=== PATIENT | female | born 1950 | race Caucasian/White ===

== ENCOUNTER 2023-11-15 12:10 | Outpatient (CLI) | payer BC, MEDICARE, SELFPAY ==
--- NOTE | ~2023-11-15 | XR_ITS ---
Left Knee Technique: AP, lateral, and sunrise views were obtained. Clinical History: Pain Findings: No fracture or dislocation is seen. There is severe medial compartment degenerative change with medial compartment narrowing. There is mild degenerative change of the lateral patellofemoral co mpartment. Soft tissues are unremarkable. No joint effusion is seen. Impression: Severe medial compartment degenerative change. Mild degenerative change of the lateral and patellofemoral compartment. Reviewed, dictated and finalized at location . Impression: Severe medial compartment degenerative change. Mild degenerative change of the lateral and patellofemoral compartment.
--- NOTE | ~2023-11-15 | XR_ITS ---
Right Knee Technique: AP, lateral, and sunrise views were obtained. Clinical History: Pain Findings: No fracture or dislocation is seen. There is severe degenerative change of the medial priya rtment with medial compartment narrowing. There is mild to moderate patellofemoral compartment degene rative change. There is mild lateral compartment degenerative change. Soft tissues are unremarkable. No joint effusion is seen. Impression: Tricompartmental degenerative change, as detailed above, severe at the medial compartment. Reviewed, dictated and finalized at location M. Impression: Tricompartmental degenerative change, as detailed above, severe at the medial c ompartment.
== END 2023-11-15 12:11 ==
PROVIDERS: PCP Internal Medicine; Visit Provider Orthopaedic Surgery
DX: M17.0 Bilateral primary osteoarthritis of knee (principal)
CPT/HCPCS: 73562

== ENCOUNTER 2023-12-28 14:56 | Outpatient (CLI) | payer BC, MEDICARE, SELFPAY ==
--- NOTE | ~2023-12-28 | CT_ITS ---
EXAMINATION: CT LE RT wo con DATE: 12/28/2023 15:35 INDICATION: Right knee unilateral primary osteoarthritis. TECHNIQUE: Computed tomography (CT) of the right lower limb was performed without intravenous contras t. Automated exposure control and iterative reconstruction technique were employed. The dose-length p roduct was 1911.89 mGy-cm. COMPARISON: Right knee radiographs 11/15/2023 FINDINGS: The right hip demonstrates mild osteoarthritis. There is varus angulation at the right knee . There is severe osteoarthritis of medial compartment and moderate osteoarthritis of lateral and pat ellofemoral compartments. There is a 13 mm loose body in the knee joint posteriorly. There is a small knee joint effusion. There is a small Vargas's cyst. IMPRESSION: 1. Severe right knee osteoarthritis. 2. Small right knee joint effusion with loose body. 3. Mild right hip osteoarthritis. Reviewed, dictated and finalized at location A.
--- NOTE | 2023-12-28 15:38 | ECG_ITS ---
SEE SCANNED COPY FOR CONFIRMED REPORT MTDD
== END 2023-12-28 14:57 | disposition home or self-care (01) ==
PROVIDERS: PCP Internal Medicine; Visit Provider Orthopaedic Surgery
DX: M17.11 Unilateral primary osteoarthritis, right knee (principal); M25.461 Effusion, right knee; M23.41 Loose body in knee, right knee; M16.11 Unilateral primary osteoarthritis, right hip
CPT/HCPCS: 73700; 93005

== ENCOUNTER 2024-02-25 14:01 | Outpatient (CLI) | payer BC, MEDICARE, SELFPAY ==
[2024-02-25 15:35] LABS: Basophils Absolute Auto 0.1 K/mm3 (0.0-0.1); Eosinophils Absolute Auto 0.1 K/mm3 (0-0.3); Eosinophils Percent Auto 2.6 % (0-4.4); Hematocrit 41.1 % (37.0-47.0); Hemoglobin 13.6 g/dL (12.0-15.0); Immature Granulocyte Absolute 0.01 K/mm3 (0.00-0.031); Immature Granulocyte Percent A 0.2 % (0-0.5); Lymphocytes Absolute Auto 1.41 K/mm3 (0.9-3.2); Lymphocytes Percent Auto 27.9 % (18.3-44.2); Mean Corpuscular HGB Conc 33.1 g/dl (32-36); Mean Corpuscular Hemoglobin 32.8 pg (26-34); Mean Platelet Volume 9.8 fl (7.4-10.4); Monocytes Absolute Auto 0.7 K/mm3 (0.1-0.6); Monocytes Percent Auto 14.3 % (2.6-8.5); Neutrophils Absolute Auto 2.7 K/mm3 (1.3-6.7); Platelet Count Result 217 k/mm3 (150-375); Red Blood Count 4.15 M/mm3 (4.2-5.4); Red Cell Distribution Width 11.8 % (11.5-14.5); White Blood Count 5.1 K/mm3 (4.5-10.0)
[2024-02-25 15:48] LABS: Albumin Level 4.1 g/dL (3.5-5.1); Estimated Glomerular Filt Rate > 60; Glucose 92 mg/dL (65-110)
[2024-02-25 15:50] LABS: Urine Cotinine NEGATIVE
[2024-02-25 16:45] LABS: Hemoglobin A1C 5.6 % (<5.7)
[2024-02-25 16:46] LABS: MRSA (PCR) NOT DETECTED (NOT DETECTE)
== END 2024-02-25 14:02 | disposition home or self-care (01) ==
PROVIDERS: PCP Internal Medicine; Visit Provider Orthopaedic Surgery
DX: Z01.818 Encounter for other preprocedural examination (principal); M17.11 Unilateral primary osteoarthritis, right knee
CPT/HCPCS: 80307; 82040; 82565; 82947; 83036; 85025; 87641

== ENCOUNTER 2024-03-23 01:28 | Day surgery (SDC) | payer BC, MEDICARE, SELFPAY ==
[2024-02-25 14:34] VITALS: BMI 26.1
--- NOTE | 2024-02-25 14:54 | PC.NURSE ---
Report to the Outpatient Waiting Room, entrance under the green pavilion located off [facility], at time ___8:00 AM____ on date __03/23/24 . Planned Procedure Time: _10:00 AM . Time changes happen often and if your time is changed the preop area will call you the afternoon before. - You and your visitor will be asked to self-screen and do not enter if you have any COVID symptoms. - A mask is optional within the hospital at this time. Patients may have clear liquids (water, carbonated beverages, clear teas, apple juice) until 3 hours prior to surgery( 7:00 AM) with a maximum of 20 ounces. - No food from midnight until time of surgery - Infants may have breast milk until 4 hours before surgery, infant formula 6 hours prior to surgery. - Children will be allowed to drink immediately following surgery. If applicable, please bring a bottle or sippy cup to assist with drinking. Juice, water, soda, and popsicles are readily available. For infants on formula, please bring formula the day of surgery. Pacifiers are allowed. Take the following medications with a SIP of water the morning of surgery: __NONE DO NOT STOP ANY OF YOUR OTHER PRESCRIPTION MEDICATIONS PRIOR TO SURGERY ?EXCEPT THE FOLLOWING Medications to discontinue per physician __PT STATES___HOLD ALL VITAMINS AND SUPPLEMENTS 7 DAYS PRE OP PER DR ARREGUIN _LAST DOSE 03/15/24 Please no make-up, nail arabic, hairspray, perfume, deodorant, or body powder the day of surgery. No jewelry (including any body piercings) or valuables the day of surgery, leave them at home. Please take a shower or bath the night before, or the morning of, surgery with an antibacterial soap. Wear comfortable, loose fitting clothing. Children are encouraged to wear pajamas. - Jewelry must be removed prior to entering the operating room. Rings and piercings that are not removed may be cut off. - The hospital will not accept responsibility for valuables. - Please leave all valuables, including medications, at home the day of surgery. If you are going home after surgery, a licensed otr truck driver must drive you home. - NO public transportation without another adult if you receive anesthesia. - We recommend that an adult stay with you for 24 hours following discharge. - We also recommend that you do not drive, make important decision, drink alcoholic beverages, or take any drugs that were not prescribed by your health care provider for at least 24 hours after your discharge time. Follow any additional instructions given to you from your surgeon. If you or anyone in your household have experienced Covid symptoms in the past week, please notify your surgeon or the nurse liaison at the phone number below for possible testing. VERBAL AND WRITTEN instructions given to ___PATIENT AND SON and asked if any additional questions and then verbalized understanding. Patient advised to call surgeon office or pre surgery nurse liaison [phone] if any additional questions.
[2024-03-23] VITALS (15 sets, daily range): BP systolic 113–153; BP diastolic 51–86; PULSE 60–83; RESP 12–16; TEMP 36–36.5; O2SAT 10–100
--- NOTE | ~2024-03-23 | XR_ITS ---
EXAMINATION: [id number]_[id number]_CR DATE: 03/23/2024 15:36 INDICATION: Postoperative evaluation following right total knee arthroplasty. TECHNIQUE: Anteroposterior and lateral views of the right knee were obtained. COMPARISON: CT dated 12/2823 FINDINGS: Right total knee arthroplasty with patellar resurfacing appears well seated and in near anatomic alig nment. No fractures identified. Expected postoperative subcutaneous and intra-articular gas. IMPRESSION: 1. Right total knee arthroplasty, negative for postoperative purposes. Reviewed, dictated and finalized at location A.
[2024-03-23] MEDS: TRANEXAMIC ACID 1,000MG/ISO100 1,000 MG/100 ML BAG 200 MG IVPB (11:40)
[2024-03-23] MEDS: LACTATED RINGERS 1,000 ML 30 ML IV CONT ×2 (11:40→15:21)
[2024-03-23] MEDS: ACETAMINOPHEN 500 MG TABLET 1000 MG PO (11:40)
--- NOTE | 2024-03-23 12:10 | WPDHPUPDATE1 ---
History and Physical Update Update Date/Time: 03/23/24 12:10 History and Physical has been reviewed, including an updated exam of the patient. There are NO changes in the patient's condition. Risks, benefits, and alternatives have been discussed and questions answered. Patient agrees to proceed with procedure.
--- NOTE | 2024-03-23 12:24 | WPDANESEPPF ---
Anes - Initial Pre Proc Eval Procedure: Operation Date: 03/23/24 13:00 Proposed Procedures p Right Custom Total Knee Arthroplasty - Ike Vazquez MD Date/Time: 03/23/24 12:24 Surgeon: Ike Vazquez MD Pre Op Diagnosis: primary oa right knee Patient Data Age: 73 Gender: F Height: 1.57 m Weight: 60.2 kg Last Vital Signs Temp 97.7 F 03/23/24 11:40 Pulse 78 03/23/24 11:40 Resp 14 03/23/24 11:40 BP 144/70 H 03/23/24 11:40 Pulse Ox 100 03/23/24 11:40 O2 Del Method Room Air 03/23/24 11:40 Allergies Allergy/AdvReac Type Severity Reaction Status Date / Time No Known Drug Allergies Allergy Unknown unknown Verified 03/23/24 11:53 Home Medications Medication Instructions Recorded Confirmed Type tramadol 50 mg tablet 50 mg PO Q6H PRN pain #60 tabs 02/21/24 02/28/24 Rx cholecalciferol (vitamin D3) 1,250 1,250 mcg PO WEEKLY 02/25/24 02/25/24 History mcg (50,000 unit) capsule cholecalciferol (vitamin D3) 50 50 mcg PO DAILY 02/25/24 02/28/24 History mcg (2,000 unit) capsule diphenhydramine HCl 25 mg capsule 25 mg PO QHS PRN Insomnia 02/25/24 02/28/24 History (Allergy (diphenhydramine)) ibandronate 150 mg tablet 50 mg PO MONTHLY 02/25/24 02/25/24 History oxygen-air delivery systems 02/25/24 02/28/24 History Laboratory Tests 03/23/24 11:37 Blood Type Pending Antibody Screen Pending Patient hx anesthesia problems: none Family hx anesthesia problems: none Results Review: All pre-operative results and documents have been reviewed as part of the pre-operative evaluation. [facility] Past Medical History Medical History Heel spur (~1995) Removal of Surgical History Surgical History History of meniscectomy of left knee (~08/21/11) Family History Family History Other Cerebrovascular accident Family history of cardiovascular disease Hypertension Social History Social History Smoking status: Never smoker Additional smoking assessment comments: DENIES ANY FORM OF TOBACCO USE Alcohol intake: current Living arrangements: alone Spiritual care concerns: No Anes - Eval Final PreProcedure Day of Procedure 03/23/24 12:24 Patient weight: normal Heart: regular rate and rhythm Lungs: clear to auscultation Airway: Mallampati scale and special considerations (Edentulous. ) Neurological: alert and oriented Last oral intake: >/= 8 hours ASA classification: I Emergent: no Anesthetic plan: proceed Anesthesia type and monitoring: general ETT and standard monitoring Results Review: All pre-operative results and documents have been reviewed as part of the pre-operative evaluation. EKG w NSR. Pt can walk 1-2 fos, no cp or sob, limited by knee pain. Informed Consent: The patient's anesthetic plan and its attendant risks and benefits were discussed with the patient/family/POA. Questions were solicited and answers provided to the satisfaction of the patient/family/POA.
[2024-03-23] MEDS: ceFAZolin 2 GM/D5W 50 ML 2 GM/50 ML BAG IVPB ×2 (12:59→20:49)
[2024-03-23] MEDS: SODIUM CHLORIDE 0.9% IV 37.7 ML, MORPHINE SULFATE INJ (*CRX) 2 MG, ROPivacaine HCL 1% 2... INFILTRATE (13:40)
[2024-03-23] MEDS: fentaNYL CITRATE INJ (*CRX) 100 MCG/2 ML VIAL 25 MCG IV PUSH ×6 (16:06→16:40)
--- NOTE | 2024-03-23 16:25 | W.PM.PROC2 ---
Procedure Note - Detailed Date of Procedure 03/23/24 Pre-op Diagnosis Primary oa right knee Post-op Diagnosis Same Procedure Performed Total knee arthroplasty, right. Surgeon Ike Vazquez MD Metal Window Screen Assembler Sri De Anda PA-C Anesthesia General and Regional (Subsartorial block.) Findings Custom TKA. Optimal implant fit. Good bone quality. Minimal medial release. PCL intact. Description of Procedure Preoperative antibiotics were given. The limb was prepped and draped in the usual sterile fashion with a well-padded tourniquet high on the thigh. The limb was exsanguinated and the tourniquet inflated to 300 mmHg. A longitudinal incision was created just medial to the patella. A trivector approach to the knee was performed. Arthrotomy was taken down through the joint capsule. No significant releases were initially taken. The femur was exposed and the F1 jig was applied. The coring tool was used to remove the cartilage for the F2 jig to sit flush with the bone. The jig was pinned and the distal cut carefully taken. Caliper measurements confirmed appropriate bony resections according to the preoperative templated plan. The F4 cutting jig for the femur was applied, at the standard rotation. The AP and anterior chamfer cuts were taken. The F5 jig was applied and the posterior chamfer cuts were taken. The tibia was prepared using the T1 jig, after removing cartilage for the jig contact points. Proper alignment was checked with the alignment gisele. The tibia was cut using the T1u guide. Gap balancing was performed. Gap measurements were taken and the knee was trialed. Excellent alignment and soft tissue balancing was confirmed. The posterior cruciate ligament was recessed along the proximal tibia. The patella was cut for resurfacing. Three lug holes were drilled. Meniscal remnants were removed. The trial components were assembled. Excellent range of motion and proper soft tissue balancing were confirmed throughout the full range of motion. Patellar tracking was excellent. The knee was copiously irrigated periodically throughout the procedure. The real implants were cemented into position. Excess cement was carefully removed. The wound was closed in layers with interrupted #1 Vicryl suture, 2-0 strata fix suture, 0 strata fix suture, 2-0 strata fix suture. Steri-Strips placed on the skin with the knee flexed. Sterile bulky dressing applied. The patient was brought to the recovery room in stable condition. There were no complications. Physician assistant teaching professor, Sri De Anda PA-C, required for surgery; including patient positioning, draping, tissue retraction, maintaining instrument position, cement removal, wound closure, and dressing placement. Implants Conformis Custom total knee arthroplasty. Cemented. Cruciate retaining. 6C insert. 38 mm oval patella. Estimated Blood Loss 50 Drains No Complications No immediate complications Condition Stable Disposition PACU [facility] Billing Surgery - Charge Forward: Surgery Billing
[2024-03-23] MEDS: SODIUM CHLORIDE 0.9% IV 1,000 ML 125 ML IV CONT (17:39)
[2024-03-23] MEDS: MELOXICAM 7.5 MG TABLET PO (17:40)
[2024-03-23] MEDS: ACETAMINOPHEN 325 MG TABLET 650 MG PO ×2 (17:40→23:40)
[2024-03-23] MEDS: predniSONE 5 MG TABLET PO (17:40)
[2024-03-23] MEDS: SENNA/DOCUSATE SODIUM TABLET 2 TAB PO (17:40)
--- NOTE | 2024-03-23 17:49 | ADMGEN ---
This patient, Mariana Aragon, was admitted to 3 [facility] Surg Room 312-01. Patient/family oriented to hospital policies and general routines including ID bracelet, bed and alarms, visiting hours, pain management, procedures, bathroom and other care routines, personal items, smoking policy, room service/diet, and visiting hours. Information on how to activate the Rapid Response Team has been discussed. Patient/Family are encouraged to report perceived risks to care and to ask questions if they do not understand what they are told or what they should do. Report from Meena in PACU.
[2024-03-23] MEDS: ASPIRIN 81 MG ENTERIC TABLET PO (20:48)
[2024-03-23] MEDS: traMADol HCL (*CRX) 50 MG TABLET PO (22:25)
[2024-03-24 02:51] VITALS: BP 119/57; PULSE 69; RESP 114; TEMP 35.9; O2SAT 98
[2024-03-24] MEDS: ACETAMINOPHEN 325 MG TABLET 650 MG PO ×2 (05:43→10:59)
[2024-03-24] MEDS: ceFAZolin 2 GM/D5W 50 ML 2 GM/50 ML BAG IVPB ×2 (05:44→12:01)
[2024-03-24 06:38] VITALS: BP 117/57; PULSE 60; RESP 16; TEMP 35.8; O2SAT 98
[2024-03-24 07:13] LABS: Basophils Percent Auto 0.1 % (0.2-1.2); Hematocrit 37.6 % (37.0-47.0); Hemoglobin 12.2 g/dL (12.0-15.0); Immature Granulocyte Absolute 0.07 K/mm3 (0.00-0.031); Immature Granulocyte Percent A 0.7 % (0-0.5); Lymphocytes Absolute Auto 0.63 K/mm3 (0.9-3.2); Mean Corpuscular HGB Conc 32.4 g/dl (32-36); Mean Corpuscular Hemoglobin 32.3 pg (26-34); Mean Corpuscular Volume 99.5 fl (80-100); Mean Platelet Volume 10.4 fl (7.4-10.4); Monocytes Absolute Auto 0.7 K/mm3 (0.1-0.6); Monocytes Percent Auto 6.8 % (2.6-8.5); Neutrophils Absolute Auto 9.1 K/mm3 (1.3-6.7); Neutrophils Percent Auto 86.4 % (45.5-73.1); Platelet Count Result 186 k/mm3 (150-375); Red Blood Count 3.78 M/mm3 (4.2-5.4); Red Cell Distribution Width 11.8 % (11.5-14.5); White Blood Count 10.5 K/mm3 (4.5-10.0)
[2024-03-24 07:22] LABS: Anion Gap 7 mmol/L (4-12); Blood Urea Nitrogen 15 mg/dL (7-17); Calcium 8.3 mg/dL (8.4-10.2); Carbon Dioxide 26 mmol/L (22-30); Chloride 102 mmol/L (98-107); Estimated CRCL calculation 48 ml/min; Estimated Glomerular Filt Rate > 60; Glucose 110 mg/dL (65-110); Potassium 3.8 mmol/L (3.4-5.0); Sodium 135 mmol/L (137-145)
--- NOTE | 2024-03-24 07:56 | WPDANESPN ---
Anes - Prog Note Post-Op Date/Time: 03/24/24 07:56 Vital Signs: Last Vital Signs Temp 35.8 C L 03/24/24 06:38 Pulse 60 03/24/24 06:38 Resp 16 03/24/24 06:38 BP 117/57 L 03/24/24 06:38 Pulse Ox 98 03/24/24 06:38 O2 Del Method Room Air 03/23/24 20:00 O2 Flow Rate 8 03/23/24 15:50 Pain Score (VAS): 0 I/O: Intake & Output 03/23/24 03/23/24 03/24/24 15:59 23:59 07:59 Intake Total 50 200 50 Output Total 1 Balance 50 200 49 Laboratory Tests 03/24/24 06:47 03/24/24 06:47 03/23/24 03/24/24 11:37 06:47 WBC 10.5 H RBC 3.78 L Hgb 12.2 Hct 37.6 MCV 99.5 MCH 32.3 MCHC 32.4 RDW 11.8 Plt Count 186 MPV 10.4 Immature Gran % (Auto) 0.7 H Neut % (Auto) 86.4 H Lymph % (Auto) 6.0 L [place] % (Auto) 6.8 Eos % (Auto) 0.0 Baso % (Auto) 0.1 L Lymph # (Auto) 0.63 L [place] # (Auto) 0.7 H Eos # (Auto) 0.0 Baso # (Auto) 0.0 Abs Immat Gran (auto) 0.07 H Absolute Neuts (auto) 9.1 H Absolute Nucleated RBC 0.000 Nucleated RBC % 0.0 Sodium 135 L Potassium 3.8 Chloride 102 Carbon Dioxide 26 Anion Gap 7 BUN 15 Creatinine 0.70 Estim Creat Clear Calc 48 Estimated GFR > 60 Glucose 110 Calcium 8.3 L Blood Type B Positive Antibody Screen Positive Antibody Identification Pending Antigen Identification Pending PATTY, IgG Interpret 3+ PATTY, Poly Interpret Pending PATTY, Complement Interp Pending Patient Feedback: Patient satisfied with anesthetic care.
[2024-03-24] MEDS: traMADol HCL (*CRX) 50 MG TABLET PO (08:38)
[2024-03-24] MEDS: polyethylene glycoL 3350 17 GM POWD.PACK PO (08:42)
[2024-03-24] MEDS: SENNA/DOCUSATE SODIUM TABLET 2 TAB PO (08:42)
[2024-03-24] MEDS: ASPIRIN 81 MG ENTERIC TABLET PO (08:42)
[2024-03-24] MEDS: MELOXICAM 7.5 MG TABLET PO (08:42)
[2024-03-24 10:00] VITALS: BP 123/62; PULSE 61; RESP 18; TEMP 36.8; O2SAT 100
--- NOTE | 2024-03-24 10:09 | PM.DS ---
DS: Admitting Diagnosis Discharge Date 03/24/24 Admitting Diagnosis Knee arthritis. DS: Discharge Diagnosis Discharge Diagnosis (1) Status post total right knee replacement: Code(s): Z96.651 - Presence of right artificial knee joint Status: Acute Assessment and Plan: Postop day 1: Right total knee arthroplasty. Patient tolerated procedure well. No complications. Pain manageable with pain medication. No numbness or tingling. We had a lengthy discussion regarding postoperative wound care, limitations, expectations, and exercises. Patient shows good understanding. She has had initial physical therapy and is tolerating it well. DVT prophylaxis: 81 mg baby aspirin b.i.d. for 14 days. Pain medication: Percocet. Meloxicam. Prednisone. Patient has followup appointment with Dr. Vazquez in 3 weeks. DS: Summary Hospital Course Reason for hospitalization: Total knee arthroplasty Hospital Course: Patient tolerated procedure well. Has had initial PT/OT. No complications. Pain well managed. Status at Discharge Functional status at discharge: uses cane/walker Overall status at discharge: patient is progressing back to baseline Time Spent with Patient Time attestation: Total time spent providing and/or coordinating discharge services: Exam Narrative: Normal weight 73 y/o female. Resting comfortably in chair. No acute distress. A&O x3. Wearing compression socks bilaterally. Dressing intact with no drainage. Moderate swelling. No ecchymosis. No erythema. No hematoma. Good early range of motion 10-80. Calf nontender. Quad pain. Quad fires. Neurologic status intact. No varicosities. Distal pulses palpable. DS: Data Data Completed and Pending Labs on day of discharge: Labs from last 24 hours 03/24/24 03/23/24 06:47 11:37 WBC 10.5 H RBC 3.78 L Hgb 12.2 Hct 37.6 MCV 99.5 MCH 32.3 MCHC 32.4 RDW 11.8 Plt Count 186 MPV 10.4 Immature Gran % (Auto) 0.7 H Neut % (Auto) 86.4 H Lymph % (Auto) 6.0 L [place] % (Auto) 6.8 Eos % (Auto) 0.0 Baso % (Auto) 0.1 L Lymph # (Auto) 0.63 L [place] # (Auto) 0.7 H Eos # (Auto) 0.0 Baso # (Auto) 0.0 Abs Immat Gran (auto) 0.07 H Absolute Neuts (auto) 9.1 H Absolute Nucleated RBC 0.000 Nucleated RBC % 0.0 Sodium 135 L Potassium 3.8 Chloride 102 Carbon Dioxide 26 Anion Gap 7 BUN 15 Creatinine 0.70 Estim Creat Clear Calc 48 Estimated GFR > 60 Glucose 110 Calcium 8.3 L Blood Type B Positive Antibody Screen Positive Antibody Identification Pending Antigen Identification Pending PATTY, IgG Interpret 3+ PATTY, Poly Interpret Pending PATTY, Complement Interp Pending Discharge Plan Discharge Patient Disposition: Home, Self-Care Discharge Instructions: See green instruction sheets Patient Instructions: Pain Management in Older Adults (DC), Total Knee Replacement (DC) Stand Alone Forms: General Discharge Instructions Follow-up/Referrals: Sri De Anda PA [Physician Relations Manager] - Discharge Medications: New aspirin 81 mg tablet,delayed release (DR/EC) 81 mg PO BID 14 Days Qty: 28 0RF meloxicam 15 mg tablet 15 mg PO DAILY Qty: 30 0RF Rx Instructions: Cut in half. Take 1/2 in morning and 1/2 at night. Take with food. Stop if stomach upset. prednisone 5 mg tablet 5 mg PO DAILY 21 Days Qty: 21 0RF oxycodone-acetaminophen 5-325 mg tablet 1 - 2 tablet PO Q4-6H MDD 6 PRN (Reason: pain) Qty: 30 0RF Continued cholecalciferol (vitamin D3) 50 mcg (2,000 unit) capsule 50 mcg PO DAILY (DME) oxygen-air delivery systems Device See Rx Instructions .Route Rx Instructions: As directed diphenhydramine HCl [Allergy (diphenhydramine)] 25 mg capsule 25 mg PO QHS PRN (Reason: Insomnia) cholecalciferol (vitamin D3) 1,250 mcg (50,000 unit) capsule 1,250 mcg PO WEEKLY Patient Comments: TAKES ON
[2024-03-24] MEDS: oxyCODONE/ACETAMINOPHEN (*CRX) 5-325 MG TABLET 1 TABLET PO (12:26)
== END 2024-03-24 14:23 | disposition home or self-care (01) ==
LOC: ANHSURGERY 15:22 → ANH3MEDSUR 17:09
PROVIDERS: Physician Assistant Surgical; PCP Internal Medicine; Visit Provider Orthopaedic Surgery
PROC: (CPT 27447; principal; 2024-03-23 13:00)
DX: M17.11 Unilateral primary osteoarthritis, right knee (principal)
CPT/HCPCS: 27447; 36415; 73560; 80048; 80307; 82040; 82565; 82947; 83036; 85025; 86850; 86860; 86870; 86880; 86900; 86901; 86902; 86971; 87641; 97110; 97161; 97165; A9270; C1713; C1776; J0171; J0690; J1100; J1170; J1885; J2250; J2270; J2405; J2704; J2795; J3010; J7030; J7120; J7512

== ENCOUNTER 2024-04-21 10:13 | Emergency (ER) | payer BC, MEDICARE, SELFPAY ==
--- NOTE | ~2024-04-21 | CT_ITS ---
EXAMINATION: CT abdomen pelvis w con DATE: 04/21/2024 14:13 INDICATION: Abdominal pain TECHNIQUE: Computed tomography (CT) of the abdomen and pelvis was performed with 100 mL Omnipaque-350 intravenous contrast. Automated exposure control and iterative reconstruction technique were employe d. The dose-length product was 336.94 mGy-cm. COMPARISON: None FINDINGS: Lung bases are clear. Heart size is normal. Aortic valve calcific lesion. No pericardial or pleural e ffusion. Liver, gallbladder, spleen, pancreas, bilateral adrenal glands and kidneys are normal. No polly wel obstruction. The appendix is not visualized. No pericecal inflammatory change to suggest acute ap pendicitis. Bladder, uterus and bilateral adnexa are unremarkable. No free intraperitoneal gas or flu id. No pathologically enlarged abdominal or pelvic lymphadenopathy. Moderate lower thoracic and mild lumbar spondylosis. IMPRESSION: 1. No acute intra-abdominal/pelvic process. Reviewed, dictated and finalized at location B.
--- NOTE | ~2024-04-21 | XR_ITS ---
EXAMINATION: XR abdomen/kub 1V DATE: 04/21/2024 12:13 INDICATION: Constipation. TECHNIQUE: A supine view of the abdomen on 2 radiographs was obtained. COMPARISON: None. FINDINGS: There are no dilated loops of bowel. There is a moderate volume of stool in the colon. IMPRESSION: 1. Normal bowel gas pattern. Reviewed, dictated and finalized at location A.
[2024-04-21 10:13] VITALS: BP 126/86; PULSE 91; RESP 14; TEMP 36.5; O2SAT 100
--- NOTE | 2024-04-21 12:03 | ED.GENADULT ---
HPI - General Adult General Chief complaint: Unspecified Stated complaint: constipation Time Seen by Provider: 04/21/24 11:40 Source: patient Mode of arrival: ambulatory Limitations: no limitations History of Present Illness HPI narrative: This is a 73-year-old female that presents to the emergency department for constipation. Reports she does not remember the last time she had a bowel movement. Reports she has tried Dulcolax, Senokot, and MiraLax with little relief. She was taking tramadol for any pain after her knee replacement, she stop taking this yesterday to see if it would help. Denies fevers or vomiting. Related Data Home Medications Medication Instructions Recorded Confirmed cholecalciferol (vitamin D3) 1,250 1,250 mcg PO WEEKLY 02/25/24 04/14/24 mcg (50,000 unit) capsule cholecalciferol (vitamin D3) 50 50 mcg PO DAILY 02/25/24 04/14/24 mcg (2,000 unit) capsule diphenhydramine HCl 25 mg capsule 25 mg PO QHS PRN Insomnia 02/25/24 04/14/24 (Allergy (diphenhydramine)) ibandronate 150 mg tablet 50 mg PO MONTHLY 02/25/24 04/14/24 oxygen-air delivery systems 02/25/24 04/14/24 Allergies Allergy/AdvReac Type Severity Reaction Status Date / Time No Known Drug Allergies Allergy Unknown unknown Verified 04/14/24 11:12 Review of Systems Review of Systems: CONSTITUTIONAL: Denies fever GASTROINTESTINAL: Reports abdominal pain. Denies nausea, vomiting, or diarrhea. GENITOURINARY: Denies dysuria All systems reviewed & are unremarkable except as noted in HPI and below [facility] Past Medical History Medical History (Updated 04/21/24 @ 17:31 by Michelle Silva PA-C) Heel spur (~1995) Removal of Surgical History Surgical History (Updated 04/21/24 @ 12:06 by Michelle Silva PA-C) History of meniscectomy of left knee (~08/21/11) Status post total right knee replacement Family History Family History Other Cerebrovascular accident Family history of cardiovascular disease Hypertension Social History Social History Smoking status: Never smoker Additional smoking assessment comments: DENIES ANY FORM OF TOBACCO USE Alcohol intake: never Substance use: never Do You Feel Safe in your Home?: Yes Lack of Transportation: No Lack of Food: Never True Current Housing: I Have Housing Concerned About Future Housing: No Difficulty Paying Gas/Electric Bills: No Difficulty Paying for Meds: No Currently Unemployed: No Education: Don't Know Difficulty w/ Childcare or Family Care: No Living arrangements: alone Spiritual care concerns: No Exam Narrative: GENERAL: Well-appearing, well-nourished, and in no acute distress. HEAD: Normocephalic, atraumatic. EYES: EOMI. CHEST: Clear to auscultation. No respiratory distress. No wheezes rales or rhonchi HEART: Regular rate and rhythm. No murmur heard. Normal peripheral pulses. ABDOMEN: Soft, nondistended, normal active bowel sounds. Tender to palpation throughout the abdomen, without guarding EXTREMITIES: Normal range of motion. No edema. SKIN: Warm, dry, no rash. NEURO: No focal deficits. Alert and oriented x3. PSYCH: Normal mood and affect Course Course Emergency Course: Patient had large bowel movement after enema. Feeling much better Vital Signs Vital signs: Vital Signs Temperature 97.7 F 04/21/24 10:13 Pulse Rate 91 04/21/24 10:13 Respiratory Rate 14 04/21/24 10:13 Blood Pressure 126/86 04/21/24 10:13 Pulse Oximetry 100 04/21/24 10:13 Oxygen Delivery Room Air 04/21/24 10:13 Temperature 97.7 F 04/21/24 10:13 Pulse Rate 91 04/21/24 10:13 Respiratory Rate 14 04/21/24 10:13 Blood Pressure 126/86 04/21/24 10:13 Pulse Oximetry 100 04/21/24 10:13 Oxygen Delivery Room Air 04/21/24 10:13 Medical Decision Making MDM Narrative Medical decision making narr
[2024-04-21 12:41] LABS: Add Urine Microscopic? YES; Appearance Urine Clear (Clear); Bilirubin Urine Negative (Negative); Blood Urine Negative (Negative); Color Urine Dark Yellow (Yellow); Glucose Urine UA Negative (Negative); Ketones Urine 2+ mg/dL (Negative); Leukocyte Esterase Ur Negative LEU/UL (Negative); Nitrate Urine Negative (Negative); Protein Urine Negative (Negative); Specific Grav Ur 1.024 (1.001-1.035); pH Urine 5.5 (5.0-9.0)
[2024-04-21 12:56] LABS: Alanine Aminotransferase 30 U/L (6-35); Alkaline Phosphatase 87 U/L (38-126); Anion Gap 8 mmol/L (4-12); Aspartate Amino Transferase 31 U/L (14-36); Bilirubin,Total 0.5 mg/dL (0.2-1.3); Blood Urea Nitrogen 14 mg/dL (7-17); Carbon Dioxide 24 mmol/L (22-30); Chloride 103 mmol/L (98-107); Estimated CRCL calculation 55 ml/min; Estimated Glomerular Filt Rate > 60; Glucose 99 mg/dL (65-110); Lipase 42 U/L (23-300); Potassium 3.9 mmol/L (3.4-5.0); Sodium 135 mmol/L (137-145)
[2024-04-21 13:26] LABS: Basophils Percent Auto 0.4 % (0.2-1.2); Hematocrit 39.9 % (37.0-47.0); Hemoglobin 13.2 g/dL (12.0-15.0); Immature Granulocyte Absolute 0.02 K/mm3 (0.00-0.031); Immature Granulocyte Percent A 0.3 % (0-0.5); Lymphocytes Absolute Auto 0.95 K/mm3 (0.9-3.2); Lymphocytes Percent Auto 13.5 % (18.3-44.2); Mean Corpuscular HGB Conc 33.1 g/dl (32-36); Mean Corpuscular Hemoglobin 33.2 pg (26-34); Mean Corpuscular Volume 100.3 fl (80-100); Mean Platelet Volume 10.2 fl (7.4-10.4); Monocytes Absolute Auto 0.5 K/mm3 (0.1-0.6); Monocytes Percent Auto 6.5 % (2.6-8.5); Neutrophils Absolute Auto 5.6 K/mm3 (1.3-6.7); Neutrophils Percent Auto 79.3 % (45.5-73.1); Platelet Count Result 209 k/mm3 (150-375); Red Blood Count 3.98 M/mm3 (4.2-5.4); Red Cell Distribution Width 12.4 % (11.5-14.5); White Blood Count 7.1 K/mm3 (4.5-10.0)
[2024-04-21 17:46] VITALS: BP 129/76; PULSE 89; RESP 16; O2SAT 98
== END 2024-04-21 17:52 | disposition home or self-care (01) ==
PROVIDERS: Emergency Provider Physician Assistant; PCP Internal Medicine
DX: K59.00 Constipation, unspecified (principal)
CPT/HCPCS: 36415; 74018; 74177; 80053; 81001; 83690; 85025; 99284; Q9967

== ENCOUNTER 2024-05-12 09:41 | Outpatient (CLI) | payer BC, MEDICARE, SELFPAY ==
--- NOTE | ~2024-05-12 | XR_ITS ---
EXAMINATION: XR knee RT 3V DATE: 05/12/2024 09:57 INDICATION: Right knee joint replacement. TECHNIQUE: 3 views of right knee including standing views were obtained. COMPARISON: Right knee radiographs 03/23/2024 FINDINGS: There is a total right knee arthroplasty with patellar resurfacing in near-anatomic alignme nt. No fracture. No periprosthetic lucency to suggest loosening or infection. There is a small knee j oint effusion. IMPRESSION: 1. Total right knee arthroplasty in near-anatomic alignment. 2. Small right knee joint effusion. Reviewed, dictated and finalized at location A.
== END 2024-05-12 09:42 | disposition home or self-care (01) ==
LOC: ANHIMG 09:43
PROVIDERS: PCP Internal Medicine; Visit Provider Orthopaedic Surgery
DX: M17.11 Unilateral primary osteoarthritis, right knee (principal); M25.461 Effusion, right knee; Z96.651 Presence of right artificial knee joint
CPT/HCPCS: 73562

== ENCOUNTER 2024-09-11 15:09 | Outpatient (CLI) | payer BC, MEDICARE, SELFPAY ==
--- NOTE | ~2024-09-11 | XR_ITS ---
Right Knee Technique: AP, lateral, and sunrise views were obtained. Clinical History: Artificial knee joint COMPARISON: 05/12/2024 Findings: No fracture or dislocation is seen. Right knee arthroplasty is unchanged. Soft tissues are unremarkable. Probable small joint effusion is seen. Impression: Stable right knee arthroplasty. No acute abnormality. Probable small joint effusion. Reviewed, dictated and finalized at location . [facility] LOCATION Impression: Stable right knee arthroplasty. No acute abnormality. Probable small joint effusion.
--- OUTSIDE RECORDS SUMMARY | 2024-09-11 15:19 | XMS_ITS | Encounter Summary ---
Author Organization [facility] Address [address] [place] [address] Phone Care Team Providers Care Glaze Supervisor Name Role Phone Tess Erwin APRN, CNP Primary Care P ramses Reason for Visit * Reason Comments Medication Refill Encounter Details Date Type Department Care Team (Late st Contact Info) Description 07/04/2020 Refill [facility] - Primary Care - Steven [address] [place] [id number] Tess Erwin APRN, CNP [address] [place] [address] Medication Refill Social History Tobacco Use Types Packs/Day Years Used Date Smoking Tobacco: Never Smokeless Tobacco: Never Alcohol Use Standard Drinks/Week Comments Yes 1 (1 standard drink = 0.6 oz pur e alcohol) Comments No Sex and Gender Information Value Date Recorded Sex Assigned at Female 03/13/2024 9:19 AM CDT Legal Sex Female 9:46 PM CDT Gender Identity Female 03/13/2024 9:19 AM CDT Sexual Orientation Not on file documented as of this encounter Miscellaneous Notes * Telephone Encounter - Kim Gaitan, IMPROVEMENT ANALYST - 07/04/2020 9:37 AM CST Medication failed the protocol, provider to review and approve the medication order if appropriate. Requested Prescriptions Pending Prescriptions Disp Refills traMADol (ULTRAM) 50 MG Tablet [Pharmacy Med Name: TRAMADOL HCL 50 MG TABLET] 12 Tab 0 Sig: Take 1 Tab by mouth every 8 hours as needed for Severe pain. Not Delegated - Analgesics: Opioid Agonists Failed - 07/04/2020 9:26 AM Failed - This refill cannot be delegated Passed - Valid encounter within last 6 months Past Office Visits Recent Outpatient Visits 3 months ago Adjustment disorder with anxiety [facility] Tess Erwin APN, CNP 5 months ago Adjustment disorder with anxiety [facility] Tess Erwin APN PUBLIC HEALTH AIDE 5 months ago Viral illness [facility] Tess Erwin APN, CNP 7 months ago Adjustment disorder with anxiety [facility] Janee Cheung Adelina, СЕРГЕЙ 8 months ago Adjustment disorder with anxiety [facility] Janee Cheung Adelina, [facility] Upcoming Appointments Future Appointments In 2 months [facility] In 2 months Tess Erwin APN, CNP [facility] ILLUMINATOR - Recent and Past Visits Recent Visits Date Type Provider Dept 03/08/20 Office Visit Tess Erwin APN, CNP [facility] 01/23/20 Office Visit Tess Erwin APN, CNP [facility] 01/12/20 Telemedicine Tess Erwin APN, CNP [facility] 11/30/19 Telemedicine Janee Cheung Adelina, СЕРГЕЙ [facility] Showing recent visits within past 460 days with a meds authorizing provider and meeting all other requirements Future Appointments Date Type Provider Dept 09/13/20 Appointment Tess Erwin APN, CNP [facility] Showing future appointments within next 90 days with a meds authorizing provider and meeting all other requirements ORIOGRAPHER documented in this encounter Plan of Treatment Upcoming Encounters Date Type Department Care Team (Late st Contact Info) Description 03/02/2025 8:00 AM CDT [facility] Primary Care - Steven [address] [place] [phone] Tess Erwin APRN, LYNN [address] [place] [address] documented as of this encounter Visit Diagnoses Diagnosis Arthritis Arthropathy, unspecified, site unspecified documented in this encounter Additional Health Concerns Assessment Noted Time PHQ-9 Depression Total Score: 0 12/08/19 17 9:00 AM CDT documented as of this encounter Care Teams Glaze Supervisor Relationship Specialty Start Date End Date Tess Erwin APRN, LYNN [address] [place] [address] PCP - General Advanced Practice Nurse 01/23/20 documented as of this encounter
--- OUTSIDE RECORDS SUMMARY | 2024-09-11 15:19 | XMS_ITS | Clinical Summary ---
Author Organization [facility] Address [address] [place] [address] Phone Care Team Providers Care Dry House Attendant Name Role Phone Tess Erwin APRN, CNP Primary Care P annmarieder Allergies No known active allergies Medications ibandronate (BONIVA) 150 MG TabletIndications :Other osteoporosis without current pathological fracture TAKE 1 TABLET BY MOUTH EVERY 30 DAYS. 3 Tablet 3 05/29/2024 Active Active Problems Problem Noted Date Diagnosed Date Bilateral carpal tunnel syndrome 08/24/2022 Pronator syndrome, right 08/24/2022 Cubital tunnel syndrome, right 08/24/2022 Osteoarthritis of left knee 12/09/2021 Adjustment disorder with anxiety 10/26/2019 Vitamin D deficiency 09/28/2019 B12 deficiency 06/03/2018 Arthritis Eczema Obesity Migraine Resolved Problems Problem Noted Date Diagnosed Date Resolved Date Seasonal affective disorder 09/27/2020 01/05/2022 Rhinitis, non-allergic 07/23/201607/23 Encounters Date Type Department Care Team Description 09/01/2024 11:20 AM ARCHIVIST ECONOMIC HISTORY Lab [facility] - [place] [phone] Steven Garnica B12 deficiency; Encounter for lipid screening for cardiovascular disease; Vitamin D deficiency Discharge Disposition: Discharged to home or Selfcare 09/01/2024 8:30 AM ARCHIVIST ECONOMIC HISTORY Office Visit [facility] [place] [facility] [place] [phone] Tess Erwin APRN, CNP Other osteoporosis without current pathological fracture (Primary Dx); B12 deficiency; Vitamin D deficiency; Encounter for immunization Discharge Disposition: Discharged to home or Selfcare 09/01/2024 Results Follow-Up [facility] - Primary Care - [place] [address] [place] [phone] Tess Erwin APRN, CNP 09/01/2024 Travel from Last 3 Months Immunizations Immunization Administration Dates Next Due Covid-19 Vaccine, Vector-nr, Rs-ad26, Pf, 0.5 Ml ([employer]) 10/08/2020 Tetanus Toxoid, Unspecified Formulation 08/02/19 07 Family History Medical History Relation Name Comments Heart Attack Father Hypertension Mother Stroke Mother Relation Name Status Comments Father Mother Alive Social History Tobacco Use Types Packs/Day Years Used Date Smoking Tobacco: Never Smokeless Tobacco: Never Tobacco Cessation:Counseling Given: Not Answered Alcohol Use Standard Drinks/Week Comments Yes 1 (1 standard drink = 0.6 oz pur e alcohol) Occasionally [employer] Utilities Answer Date Recorded In the past 12 months has [employer] electric, gas, oil, or water Workbooks threatened to shut off services in your home? No 03/13/2024 Social Connection and Isolat ion Panel [NHANES] Answer Date Recorded In a typical week, how many times do you talk on the phone with family, friends, or neighbors? More than three times a week 03/13/2024 How often do you get togethe r with friends or relatives? Twice a week 03/13/2024 How often do you attend chur ch or hoahaoism services? 1 to 4 times per year 03/13/2024 Active Member of Clubs or Organizations Not on f ile 03/13/2024 Attends Club or Organization Meetings Not on hanane e 03/13/2024 Marital Status Not on file 03/13/2024 AUDIT-C Answer Date Recorded Q1: How often do you have a drink containing alc ohol? Monthly or less 03/13/2024 Q2: How many drinks containi ng alcohol do you have on a typical day when you are drinking? Patient declined 03/13/2024 Frequency of Binge Drinking Not on file 03/02 Overall Financial Resource Strain (CARDIA) Answe r Date Recorded How hard is it for you to pa y for the very basics like food, housing, medical care, and heating? Not very hard 03/13/2024 PHQ-2 Answer Date Recorded Total Score - Questions 1-9 1 08/04 [facility] - Occupational Stress Questionnaire Answer Date Recorded Do you feel stress - tense, restless, nervous, or anxious, or unable to sleep at night because your mind is troubled all the time - these days? To some extent 03/13/2024 Exercise Vital Sign Answer Date Recorde d On average, how many days pe r week do you engage in moderate to strenuous exercise (like a brisk walk)? 5 days 03/13/2024 On average, how many minutes do you engage in exercise at this level? 60 min 03/13/2024 Hunger Vital Sign Answer Date Recorded Within the past 12 months, y ou worried that your food would run out before you got the money to buy more. Never true 03/13/20 24 Within the past 12 months, t he food you bought just didn't last and you didn't have money to get more. Never true 03/13/2024 PRAPARE - Transportation Answer Date Re corded In the past 12 months, has l ack of transportation kept you from medical appointments or from getting medications? No 03/02 In the past 12 months, has l ack of transportation kept you from meetings, work, or from getting things needed for daily living? No 03/13/2024 Housing Stability Vital Sign Answer Ralph e Recorded In the last 12 months, was t here a time when you were not able to pay the mortgage or rent on time? No 03/13/2024 In the past 12 months, how m any times have you moved where you were living? 0 03/13/2024 At any time in the past 12 m [facility], were you homeless or living in a [place] health care facility (including now)? No 03/13/2024 Comments No Sex and Gender Information Value Date Recorded Sex Assigned at Female 03/13/2024 9:19 AM CDT Legal Sex Female 9:46 PM CDT Gender Identity Female 03/13/2024 9:19 AM CDT Sexual Orientation Not on file Last Filed Vital Signs Vital Sign Reading Time Taken Comments Blood Pressure 120/66 09/01/2024 8:27 AM ARCHIVIST ECONOMIC HISTORY Pulse 67 09/01/2024 8:27 AM ARCHIVIST ECONOMIC HISTORY Temperature 36.2 C (97.2 F) 09/01/2024 8:27 AM ARCHIVIST ECONOMIC HISTORY Respiratory Rate 18 09/01/2024 8:27 AM ARCHIVIST ECONOMIC HISTORY Oxygen Saturation 98% 09/01/2024 8:27 AM ARCHIVIST ECONOMIC HISTORY Inhaled Oxygen Concentration - - Weight 64.4 kg (142 lb) 09/01/2024 8:27 AM ARCHIVIST ECONOMIC HISTORY Height 157.5 cm (5' 2 ) 05/03/2024 10:50 AM CDT Body Mass Index 25.97 05/03/2024 10:50 AM CDT Plan of Treatment Upcoming Encounters Date Type Department Care Team (Late st Contact Info) Description 03/02/2025 8:00 AM CDT Office Visit [facility] - Primary Care - [place] [address] [place] [phone] Tess rEwin APRN, FOUNDATION DIRECTOR [address] [place], [place] [id number] Health Maintenance Due Date Last Done Comments TdaP Immunization 1950 Immunochemical Fecal Occult Blood 1999 Zoster Immunization (1 of 2) 1999 Cologuard 03/25/2023 03/25/2020 SARS-COV-2 Immunization ( season) 2024 07/04/2021, 10/08/2020 Respiratory Syncytial Virus (RSV) Immunization (Adult) (1 - 1-dose 75+ series) 2024 DEXA Bone Density 06/04/2025 06/04/2023, 05/03/2020 Mammogram Discontinued 05/03/2020, 01/03/2016 Hepatitis C Virus (HCV) Screening Completed 11/12/2023 Colonoscopy Discontinued Colorectal Cancer Screening Discontinued Hepatitis B Immunization Aged Out No longer eligible based on patient's age to complete this topic Influenza Immunization Discontinued Meningococcal Immunization (ACWY) Aged Out No longer eligible based on patient's age to complete this topic Pneumococcal Immunization (5 0+ years) Discontinued Rotavirus Immunization Aged Out No lo nger eligible based on patient's age to complete this topic Procedures Procedure Name Priority Date/Time Associated Diagnosis Comments CBC WITH AUTO DIFFERENTIAL Routine 09/01/2024 9:07 AM ARCHIVIST ECONOMIC HISTORY B12 deficiency Encounter for lipid screening for cardiovascular disease VITAMIN D, 25 HYDROXY TOTAL Routine 09/01/2024 9:07 AM ARCHIVIST ECONOMIC HISTORY Vitamin D deficiency VITAMIN B12 Routine 09/01/2024 9:07 AM ARCHIVIST ECONOMIC HISTORY B12 deficiency LIPID PANEL Routine 09/01/2024 9:07 AM ARCHIVIST ECONOMIC HISTORY Encounter for lipid screening for cardiovascular disease CMP (COMPREHENSIVE METABOLIC PANEL) Routine 09/01/2024 9:07 AM ARCHIVIST ECONOMIC HISTORY Encounter for lipid screening for cardiovascular disease COMPLETE BLOOD COUNT (CBC) WITH DIFF Routine 09/01/2024 9:07 AM ARCHIVIST ECONOMIC HISTORY B12 deficiency Encounter for lipid screening for cardiovascular disease HEPATITIS C ANTIBODY Routine 11/12/2023 9:05 AM CDT Encounter for HCV screening test for low risk patient [facility] BONE DENSITOMETRY AXIAL SKELETON Routine 06/04/2023 9:47 AM CDT Other osteoporosis without current pathological fracture EBENEZER SCREENING BILATERAL DIGITAL W CAD W TED Routine 05/03/2020 11:18 AM CDT Encounter for mammogram to establish baseline mammogram COLOGUARD Routine 03/25/2020 9:45 AM CDT Screening for colon cancer from Last 3 Months or Most Recently Relevant to Health Maintenance Results * VITAMIN D, 25 HYDROXY TOTAL (09/01/2024 9:07 AM ARCHIVIST ECONOMIC HISTORY) VITAMIN D, 25 HYDROX 30.1 ng/mL 09/01/2024 1:36 PM ARCHIVIST ECONOMIC HISTORY [facility] Blood Venipuncture / Unknown 09/01/2024 9:07 AM ARCHIVIST ECONOMIC HISTORY 09/01/2024 9:07 AM ARCHIVIST ECONOMIC HISTORY Narrative [facility] - 09/01/2024 1:36 PM ARCHIVIST ECONOMIC HISTORY Published reference ranges for Vitamin D vary depending on time and place and method of testing, and on patient's age, sex, ethnicity and levels of other measured analytes such as parathormone, calcium and phosphorus. The result should be evaluated in conjunction with clinical findings and suspicions. [place] [employer] and Endocrine Clinical Practice Guidelines: Status Vitamin D levels (ng/mL) Deficient <=20 At risk of inadequacy 21-29 Sufficient 30-100 Centers of Disease Control and Prevention Guidelines: Status Vitamin D levels (ng/mL) Deficient <13 At risk of inadequacy 13-19 Sufficient 20-50 Possibly harmful >50 References: [place] [employer], 2010 Dietary reference intakes for calcium and vitamin D. [place]: The National Academies Press. Diana M, Hussain N, Micheline COLEMAN, et al., Evaluation, treatment, and prevention of Vitamin D deficiency: an Endocrinology Clinical Practice Guideline. JCEM 2011 96: 7 0462-5579. Aidan A, Juan Carlos C, Leta D, et al., Vitamin D Status: [place], 0978-6180, [facility] data brief, no. 59, [place]: National Center for Health Statistics. 2010. Tses Erwin APRN, CNP CHEMISTRY ORDER SANGEETHA Final Result [facility] [place] [address] * (ABNORMAL) CBC WITH AUTO DIFFERENTIAL (09/01/2024 9:07 AM ARCHIVIST ECONOMIC HISTORY) WBC 3.37(L) 4.00 - 12.00 10(3)/mcL 09/01/2024 12:52 PM ARCHIVIST ECONOMIC HISTORY [facility] RBC 3.96 3.80 - 5.30 10(6)/mcL 09/01/2024 12:52 PM ARCHIVIST ECONOMIC HISTORY [facility] HEMOGLOBIN (HGB) 13.1 12.0 - 15.8 g/dL 09/01/2024 12:52 PM [facility] HEMATOCRIT (HCT) 39.1 36.0 - 47.0 % 09/01/2024 12:52 PM [facility] MCV 98.7(H) 82.0 - 96.0 fL 09/01/2024 12:52 PM [facility] MCH 33.1 26.0 - 34.0 pg 09/01/2024 12:52 PM [facility] MCHC 33.5 31.0 - 36.0 g/dL 09/01/2024 12:52 PM [facility] PLATELET COUNT 204 140 - 440 10(3)/[facility] 09/01/2024 12:52 PM [facility] RDW 11.8 11.8 - 15.5 % 09/01/2024 12:52 PM [facility] MPV 10.4 9.7 - 12.4 fL 09/01/2024 12:52 PM [facility] NEUTROPHILS 58.4 47.0 - 73.0 % 09/01/2024 12:52 PM [facility] LYMPHOCYTES 22.3 18.0 - 42.0 % 09/01/2024 12:52 PM [facility] MONOCYTES 16.0(H) 4.0 - 12.0 % 09/01/2024 12:52 PM [facility] EOSINOPHILS 2.1 0.0 - 5.0 % 09/01/2024 12:52 PM [facility] BASOPHILS 1.2(H) 0.0 - 1.0 % 09/01/2024 12:52 PM [facility] ABSOLUTE NEUTROPHILS 1.97 1.60 - 7.70 10(3)/mcL 09/01/2024 12:52 PM [facility] ABSOLUTE LYMPHOCYTES 0.75(L) 1.30 - 3.20 10(3)/mcL 09/01/2024 12:52 PM [facility] ABSOLUTE MONOCYTES 0.54 0.20 - 1.00 10(3)/mcL 09/01/2024 12:52 PM ARCHIVIST ECONOMIC HISTORY [facility] ABSOLUTE EOSINOPHIL 0.07 0.00 - 0.40 10(3)/mcL 09/01/2024 12:52 PM ARCHIVIST ECONOMIC HISTORY [facility] ABSOLUTE BASOPHILS 0.04 0.00 - 0.10 10(3)/mcL 09/01/2024 12:52 PM ARCHIVIST ECONOMIC HISTORY [facility] NRBC PER 100 WBC 0 09/01/19 12:52 PM ARCHIVIST ECONOMIC HISTORY [facility] Blood Venipuncture / Unknown 09/01/2024 9:07 AM ARCHIVIST ECONOMIC HISTORY 09/01/2024 9:07 AM ARCHIVIST ECONOMIC HISTORY Tess Erwin APRN, CNP HEMATOLOGY ORDE RABLES Final Result Performing Organization Address City/[facility]/ZIP Co de Phone Number [facility] [place] [address] * VITAMIN B12 (09/01/2024 9:07 AM ARCHIVIST ECONOMIC HISTORY) VITAMIN B12 257 213 - 816 pg/mL 09/01/2024 1:36 PM ARCHIVIST ECONOMIC HISTORY [facility] Blood Venipuncture / Unknown 09/01/2024 9:07 AM ARCHIVIST ECONOMIC HISTORY 09/01/2024 9:07 AM ARCHIVIST ECONOMIC HISTORY Tess Erwin APRN, CNP CHEMISTRY ORDER SANGEETHA Final Result [facility] [place] [address] * (ABNORMAL) LIPID PANEL (09/01/2024 9:07 AM ARCHIVIST ECONOMIC HISTORY) CHOLESTEROL 152 <200 mg/dL 09/01/2024 1:13 PM ARCHIVIST ECONOMIC HISTORY [facility] TRIGLYCERIDES 34 <150 mg/dL 09/01/2024 1:13 PM ARCHIVIST ECONOMIC HISTORY [facility] HDL CHOLESTEROL 70 >40 mg/dL 1:13 PM ARCHIVIST ECONOMIC HISTORY [facility] LDL 75 <130 mg/dL 09/01/2024 1:13 PM [facility] VLDL 7(L) 10 - 50 mg/dL 09/01/2024 1:13 PM [facility] CHOL/HDL RATIO 2.2 0.0 - 4.4 09/01/2024 1:13 PM [facility] NON-HDL CHOLESTEROL 82 <130 mg/dL 09/01/2024 1:13 PM [facility] IS THE PATIENT REQUIRED TO BE FASTING? Yes 09/01/2024 1:13 PM [facility] HAS THE PATIENT BEEN FASTING? Yes 09/01/2024 1:13 PM [facility] Blood Venipuncture / Unknown 09/01/2024 9:07 AM ARCHIVIST ECONOMIC HISTORY 09/01/2024 9:07 AM ARCHIVIST ECONOMIC HISTORY Tess Erwin APRN, CNP CHEMISTRY ORDER SANGEETHA Final Result [facility] [place] [address] * (ABNORMAL) CMP (COMPREHENSIVE METABOLIC PANEL) (09/01/2024 9:07 AM ARCHIVIST ECONOMIC HISTORY) SODIUM 141 136 - 145 mmol/L 09/01/2024 1:13 PM [facility] POTASSIUM 4.1 3.5 - 5.1 mmol/L 09/01/2024 1:13 PM [facility] CHLORIDE 110(H) 98 - 107 mmol/L 09/01/2024 1:13 PM [facility] CO2, VENOUS 27 22 - 30 mmol/L 09/01/2024 1:13 PM [facility] ANION GAP 8.1 <18.0 mmol/L 09/01/2024 1:13 PM [facility] GLUCOSE 97 70 - 99 mg/dL 09/01/2024 1:13 PM [facility] BUN 16 10 - 20 mg/dL 09/01/2024 1:13 PM [facility] CREATININE, BLOOD 0.74 0.60 - 1.00 mg/dL 09/01/2024 1:13 PM [facility] BUN/CREATININE RATIO 22(H) 12 - 20 ratio 09/01/2024 1:13 PM [facility] TOTAL PROTEIN 6.3 6.0 - 8.0 g/dL 09/01/2024 1:13 PM [facility] ALBUMIN 3.6 3.5 - 5.0 g/dL 09/01/2024 1:13 PM [facility] A/G RATIO 1.3 1.0 - 2.2 09/01/2024 1:13 PM [facility] CALCIUM 8.7 8.7 - 10.5 mg/dL 09/01/2024 1:13 PM [facility] T BILI 0.5 0.2 - 1.2 mg/dL 09/01/2024 1:13 PM [facility] SGOT (AST) 23 6 - 42 U/L 09/01/2024 1:13 PM [facility] SGPT (ALT) 15 6 - 55 U/L 09/01/2024 1:13 PM [facility] ALKALINE PHOSPHATASE 83 40 - 150 U/L 09/01/2024 1:13 PM [facility] IS THE PATIENT REQUIRED TO BE FASTING? No 09/01/2024 1:13 PM [facility] GFR, ESTIMATED >60 >=60 09/01/2024 1:13 PM [facility] Comment: Creatinine Clearance is the preferred criteria for selecting drug dose adjustments in renally impaired patients. The GFR is provided as additional pertinent clinical information. GFR is reported in mL/min/1.73 sq m. Calculation based on the Chronic Kidney Disease Epidemiology Collaboration (CKD- EPI) equation refit without adjustment for race. GFR, EST. >60 >=60 025 1:13 PM [facility] GFR, EST. NONAFRICAN >60 >=60 09/01/2024 1:13 PM ARCHIVIST ECONOMIC HISTORY [facility] Blood Venipuncture / Unknown 09/01/2024 9:07 AM ARCHIVIST ECONOMIC HISTORY 09/01/2024 9:07 AM ARCHIVIST ECONOMIC HISTORY Tess Erwin APRN, LYNN CHEMISTRY ORDER SANGEETHA Final Result [facility] [place] [address] * HEPATITIS C ANTIBODY (11/12/2023 9:05 AM CDT) hepatitis C antibody 0.21 <1 S/CO 11/12/2023 9:18 PM CDT [facility] Comment: Signal/Cutoff ratio < 0.79 is Nondetected Signal/Cutoff ratio 0.80-0.99 is Grayzone Signal/Cutoff ratio > 0.99 is Detected Supplemental assays are recommended if signal/cutoff ratio is >/=1.00. Signal/cutoff ratio result >/= 5.00 is 97% predictive of positivity for recombinant immunoblot assay (RIBA) and will be reported to the [place] Department of Public Health as required. Blood Venipuncture / Unknown 11/12/2023 9:05 AM CDT 11/12/2023 9:05 AM CDT Tess Erwin APRN, LYNN CHEMISTRY ORDER SANGEETHA Final Result [facility] [address] [place] [address], [place] * [facility] BONE DENSITOMETRY AXIAL SKELETON (06/04/2023 9:47 AM CDT) Anatomical Region Laterality Modality BODY N/A Computed Radiogr aphy 06/04/2023 11:2 5 AM CDT Impressions 06/04/2023 11:27 AM CDT IMPRESSION: Osteoporosis. REFERENCE: Bone mineral density: Normal (T-score above or = -1.0) Low bone mass (T-score between -1.0 and -2.5) replaces the previously used term osteopenia Osteoporosis (T-score = or below -2.5) Medical evaluation for secondary causes of low bone mineral density may be appropriate. FRAX is a World Health Organization validated fracture risk assessment tool that calculates a person's 10 year probability of a major osteoporosis related fracture and hip fracture. According to the National Osteoporosis Foundation guidelines, postmenopausal women and men age 50 or older with low bone mass and a 10 year probability of a major osteoporosis related fracture = or greater than 20% or a 10 year probability of a hip fracture = or greater than 3% should be considered for treatment. 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 COMPARISON: 05/03/2020 FINDINGS: AP LUMBAR SPINE L1-L4: Total BMD is 0.814 g/cm2 T-score is -3.1 This is increased by 11.1% in comparison to prior exam which is statistically significant. LEFT HIP: Total BMD is 0.705 g/cm2 T-score is -2.4 This is decreased by 2.6% in comparison to prior exam which is not statistically significant. Femoral neck BMD is 0.655 g/cm2 T-score is -2.8 FRAX: 10 year risk for a major osteoporotic fracture is 18.4%, 10 year risk for a hip fracture is 6.2% THIS IS AN ELECTRONICALLY VERIFIED FINAL REPORT 06/04/2023 11:25 AM - Electronically signed by Giuliano López M.D. KR: JOHANA Report ID: [id number] Reading Location: [place] [address] Procedure Note Giuliano López MD - 06/04/2023 EXAM DESCRIPTION: EBENEZER BONE DENSITOMETRY AXIAL SKELETON REASON FOR STUDY: 72 y/o year old F with given history of: screening Diamond Cleaver/Model: [employer] (S/N [id number]) CLINICAL INFORMATION: Current height: 62 inches Maximum height: 62 inches Weight: 145 pounds Risk factors: Secondary osteoporosis. COMPARISON: 05/03/2020 FINDINGS: AP LUMBAR SPINE L1-L4: Total BMD is 0.814 g/cm2 T-score is -3.1 This is increased by 11.1% in comparison to prior exam which is statistically significant. LEFT HIP: Total BMD is 0.705 g/cm2 T-score is -2.4 This is decreased by 2.6% in comparison to prior exam which is not statistically significant. Femoral neck BMD is 0.655 g/cm2 T-score is -2.8 FRAX: 10 year risk for a major osteoporotic fracture is 18.4%, 10 year risk for a hip fracture is 6.2% THIS IS AN ELECTRONICALLY VERIFIED FINAL REPORT 06/04/2023 11:25 AM - Electronically signed by Giuliano López M.D. KR: KR Report ID: [id number] Reading Location: [place] [address] IMPRESSION: Osteoporosis. REFERENCE: Bone mineral density: Normal (T-score above or = -1.0) Low bone mass (T-score between -1.0 and -2.5) replaces the previously used term osteopenia Osteoporosis (T-score = or below -2.5) Medical evaluation for secondary causes of low bone mineral density may be appropriate. FRAX is a World Health Organization validated fracture risk assessment tool that calculates a person's 10 year probability of a major osteoporosis related fracture and hip fracture. According to the National Osteoporosis Foundation guidelines, postmenopausal women and men age 50 or older with low bone mass and a 10 year probability of a major osteoporosis related fracture = or greater than 20% or a 10 year probability of a hip fracture = or greater than 3% should be considered for treatment. For further information, including treatment recommendations, please refer to the 2019 ISCD Official Positions (http://www.iscd.org) and the NOF's Clinician's Guide to Prevention and Treatment of Osteoporosis (http://www.nof.org/professionals/clinical-guidelines) Tess Erwin SERVICE TRAINER, FOUNDATION DIRECTOR IMG DEXA ORDERA BLES Final Result * EBENEZER SCREENING BILATERAL DIGITAL W CAD W TED (05/03/2020 11:18 AM CDT) Anatomical Region Laterality Modality breast Bilateral Mammography 05/03/2020 10:3 6 AM CDT Narrative 05/04/2020 7:00 AM CDT - EBENEZER SCREENING BILATERAL DIGITAL W CAD W TED BILATERAL DIGITAL SCREENING MAMMOGRAM 3D/2D WITH CAD WITH MEDIOLATERAL OBLIQUE CRANIOCAUDAL: 05/03/2020 The study was acquired using digital technology and interpreted from soft copy. Current study was also evaluated with panpan version 7.2. CLINICAL: Routine screening. Patient has no complaints. No personal history of cancer. No family history of breast cancer. COMPARISONS: Comparison is made to exams dated: 01/03/2016 and 06/10/2012 [facility]. BREAST TISSUE:There are scattered fibroglandular densities in both breasts. FINDINGS: There are benign vascular calcifications in the right breast. No significant masses, calcifications, or other findings are seen in either breast. There has been no significant interval change. IMPRESSION: BI-RAD 2 BENIGN There is no mammographic evidence of malignancy. A 1 year screening mammogram is recommended. The patient has been or will be contacted. The patient will be entered into a reminder system with a target due date of 1 year for her next screening exam. Electronically signed by: Elana huitron/taisha:05/03/2020 16:40:43 Product Safety Technical Assistant: Della Allen)(Marciano), [facility] letter sent: Normal Exam Reading location: [facility] BI-RADS: 2 Benign Procedure Note Elana Tello MD - 05/04/2020 - EBENEZER SCREENING BILATERAL DIGITAL W CAD W TED BILATERAL DIGITAL SCREENING MAMMOGRAM 3D/2D WITH CAD WITH MEDIOLATERAL OBLIQUE CRANIOCAUDAL: 05/03/2020 The study was acquired using digital technology and interpreted from soft copy. Current study was also evaluated with ICAD version 7.2. CLINICAL: Routine screening. Patient has no complaints. No personal history of cancer. No family history of breast cancer. COMPARISONS: Comparison is made to exams dated: 01/03/2016 and 06/10/2012 [facility]. BREAST TISSUE:There are scattered fibroglandular densities in both breasts. FINDINGS: There are benign vascular calcifications in the right breast. No significant masses, calcifications, or other findings are seen in either breast. There has been no significant interval change. IMPRESSION: BI-RAD 2 BENIGN There is no mammographic evidence of malignancy. A 1 year screening mammogram is recommended. The patient has been or will be contacted. The patient will be entered into a reminder system with a target due date of 1 year for her next screening exam. Electronically signed by: Elana huitron/taisha:05/03/2020 16:40:43 Product Safety Technical Assistant: Della Allen)(Marciano), [facility] letter sent: Normal Exam Reading location: [facility] BI-RADS: 2 Benign Tess Erwin APRN, CNP IMKayode MAMMO ORDER SANGEETHA Final Result * COLOGUARD (03/25/2020 9:45 AM CDT) Cologuard Negative Not Applicable [facility] Comment: A negative result indicates a low likelihood that a colorectal cancer (CRC) or an advanced adenoma (adenomatous polyps with more advanced pre-malignant features) is present. The chance that a person with a negative Cologuard test has a colorectal cancer is less than 1 in 1500 (negative predictive value >99.9%) or has an advanced adenoma is less than 5.3% (negative predictive value 94.7%). These data are based on a prospective cross-sectional screening study of 10,000 individuals at average risk for colorectal cancer who were screened with both Cologuard and colonoscopy. (Rebeca Smith al, N Engl J Med 2014;370(14):4973-5229) The normal value (reference range) for this assay is negative. COLOGUARD RE-SCREENING RECOMMENDATION: Periodic routine colorectal cancer screening is an important part of preventive healthcare for asymptomatic persons at average risk for colorectal cancer. Following a negative Cologuard result, the [place] Cancer Society and U.S. Multi-Society Task Force screening guidelines recommend a Cologuard re-screening interval of 3 years. References: [place] [employer] Society (ACS). Colorectal cancer prevention and early detection. [place], [place]: [place] [employer] Society; [updated 2015Nov 23]. https://www.cancer.org/cancer/nozja-fyazun-mroioe/xnghwgiqj-ynsmxifgr-eabcixa/ acs-recommendations.html. Accessed April 01, 2018; Daniele DK, Dee LYNNE, Ifrah WaltersK, Colorectal Cancer Screening: Recommendations for Physicians and Patients from the U.S. Multi-Society Task Force on Colorectal Cancer Screening, Am J Gastroenterology 2017; 112:2915-1527. TEST TYPE: Composite algorithmic analysis of stool DNA-biomarkers with hemoglobin immunoassay. Quantitative values of individual biomarkers are not reportable and are not associated with individual biomarker result reference ranges. PRECAUTIONS AND LIMITATIONS: Cologuard is intended for colorectal cancer screening of adults of either sex, 45 years or older, who are at average-risk for colorectal cancer (CRC). Cologuard has been approved for use by the U.S. FDA. Cologuard may produce a false negative or false positive result. A negative Cologuard test result does not guarantee the absence of CRC or advanced adenoma (pre-cancer). Patients with a negative Cologuard test result should be advised to continue participating in a colorectal cancer screening program. The screening interval for Cologuard is currently recommended at an interval of every 3 years by the [place] [employer] Society and U.S. Multi-Society Task Force. A false positive result occurs when Cologuard produces a positive result, even though a colonoscopy may not find colorectal cancer or precancerous polyps. The performance of Cologuard has been established in a cross sectional study (i.e., single point in time) of average-risk adults aged 50-84. Cologuard performance in patients ages 45 to 49 years was estimated by sub-group analysis of near-age groups. Cologuard performance data in a 10,000 patient pivotal study using colonoscopy as the reference method can be accessed at the following location: www.OrderAhead.Boomsense/results. Additional description of the Cologuard test process, warnings and precautions can be found at www.cologuardtest.com. Rx only. Stool specimen (specimen) 03/25/2020 9:45 AM CDT 03/26/2020 7:48 PM CDT Tess Erwin APRN, CNP BODY FLUIDS & S TOOLS ORDERABLES Final Result [employer] [address] [place] [address], [facility] [address] [place] [address] from Last 3 Months or Most Recently Relevant to Health Maintenance Insurance MEDICARE [facility] [phone] [place] [address] Care Teams Dry House Attendant Relationship Specialty Start Date End Date Tess Erwin APRN, FOUNDATION DIRECTOR [address] [place] [address] PCP - General Advanced Practice Nurse 01/23/20
--- OUTSIDE RECORDS SUMMARY | 2024-09-11 15:19 | XMS_ITS | Encounter Summary ---
Author Organization [facility] Address [address] [place] [address] Care Team Providers Care Photocopying Machine Operator Name Role Phone Unavailable Primary Care Provider Unavailabl e Encounter Details Date Type Department Care Team (Late st Contact Info) Description 01/11/2020 Lab Requisition [facility] MICROBIOLOGY [address] [place] [address] [address] [address] Social History Tobacco Use Types Packs/Day Years Used Date Smoking Tobacco: Never Assessed Sex and Gender Information Value Date Recorded Sex Assigned at Not on file Gender Identity Not on file Sexual Orientation Not on file documented as of this encounter Plan of Treatment Not on file documented as of this encounter Procedures Procedure Name Priority Date/Time Associated Diagnosis Comments SARS-COV-2 (COVID-19) IN HOUSE Routine 01/10/2020 10:00 AM CDT documented in this encounter Results * SARS-COV-2 (COVID-19) IN HOUSE (01/10/2020 10:00 AM CDT) COVID-19 PCR Not detected Not detected, Invalid 01/11/2020 6:50 PM CDT [facility] MICROBIOLOGY Microbiology SPECIMEN FROM NASOPHARYNGEAL STRUCTURE / Unknown Collection / Unknown 01/10/2020 10:00 AM CDT 01/11/2020 10:12 AM CDT Narrative [facility] - 01/11/2020 6:50 PM CDT This Real Time RT-PCR assay was developed and its performance characteristics determined by [facility]. This test has been authorized by the Food and Drug administration (FDA)under an Emergency Use Authorization (EUA). This test has been validated in accordance with the FDA's guidance document Policy for Diagnostic Testing in Laboratories Certified to perform High Complexity Testing under CLIA prior to Emergency Use Authorization for Coronavirus Disease-2019 during the Public Health Emergency issued on September 30, 2019. FDA independent review of this validation is pending. This test is only authorized for the duration of time the declaration that circumstances exist justifying the authorization of emergency use of in vitro diagnostic tests for detection of SARS-CoV-2 virus and/or diagnosis of COVID-19 infection under section 564(b)(1) of the Act, 21 U.S.C 360bbb-3 (b)(1), unless the authorization is terminated or revoked sooner. Sandra [facility] MICROBIOLOGY O RDERABLES [facility] [address] [place] [address], [facility] [phone] documented in this encounter Visit Diagnoses Not on filedocumented in this encounter Additional Health Concerns Infection Onset Date Last Indicated Resolved Time COVID-19 Under Investigation 01/11/2020 01/10/2020 01/11/2020 6:50 PM CDT documented as of this encounter
--- OUTSIDE RECORDS SUMMARY | 2024-09-11 15:19 | XMS_ITS | Patient Health Summary ---
Author Organization [facility] Address [address] [facility] [place] [address] Care Team Providers Care Shoe Treer Name Role Phone Unavailable Primary Care Provider Unavailabl e Note from [facility],non-owned Affiliates and Associated Physician Practices is amultiple site organization consisting of ambulatory clinics and hospital sitesin [place], [place], [place] and [place]. This disclosure is being madepursuant to the Care Everywhere program and may not contain all information available regarding this patient. Last updated 18.[facility] Social History Tobacco Use Types Packs/Day Years Used Date Smoking Tobacco: Never Assessed Sex and Gender Information Value Date Recorded Sex Assigned at Not on file Gender Identity Not on file Sexual Orientation Not on file Procedures * SARS-COV-2 (COVID-19) IN HOUSE(Performed 01/10/2020) * DERMATOPATHOLOGY(Performed 10/10/2015) Results * SARS-COV-2 (COVID-19) IN HOUSE (01/10/2020 10:00 AM CDT) COVID-19 PCR Not detected Not detected, Invalid 01/11/2020 6:50 PM CDT [facility] MICROBIOLOGY Microbiology SPECIMEN FROM NASOPHARYNGEAL STRUCTURE / Unknown Collection / Unknown 01/10/2020 10:00 AM CDT 01/11/2020 10:12 AM CDT Narrative [facility] - 01/11/2020 6:50 PM CDT This Real Time RT-PCR assay was developed and its performance characteristics determined by [facility]. This test has been [...] Sandra [facility] MICROBIOLOGY O RDERABLES Performing Organization Address [facility] Co de Phone Number [phone] [address] [place] [id number], [facility] [phone] * PATHOLOGY TISSUE FOR DERMATOLOGY (10/10/2015 12:00 AM BOARD OF EDUCATION SECRETARY) Result CASE: [id number] PATIENT: ANICETO ARAGON PATHOLOGIC DIAGNOSIS: Right upper abdomen: SUBACUTE SPONGIOTIC DERMATITIS (see microscopic description and comment) CLINICAL DATA: Eczema vs contact vs drug. GROSS DESCRIPTION: Received is one formalin filled container labeled with the patients name and designated right upper abdomen. The specimen consists of a shave biopsy measuring [id number]. Jar 0. MICROSCOPIC DESCRIPTION: There is focal parakeratosis and spongiosis of the epidermis. In the dermis there is a mainly superficial perivascular lymphoid infiltrate. No eosinophils are seen in multiple deeper sections examined. A GMS stain does not highlight any fungal organisms. COMMENT: These histological findings are consistent with an eczematous dermatitis. Electronically signed out by Sandra Srivastava M.D. 10/15/2015 2:05:12PM [facility] Comment: Performed at: Dermatopathology Laboratory [facility] - Department of Dermatology [address] [place] [address], 5th [place] [address] Phone number: [phone] FAX: [phone] 10/10/2015 10/14/2015 Historical Provider LAB - PATHOLOGY/C YTOLOGY ORDERABLES Performing Organization Address [facility] Co de Phone Number [facility] [address]th [address] [place], [place] [address] [phone]
--- OUTSIDE RECORDS SUMMARY | 2024-09-11 15:19 | XMS_ITS | Referral Summary ---
Author Organization [facility] Address [address] [facility] [place] [address] Care Team Providers Care Ramp Attendant Name Role Phone Unavailable Primary Care Provider Unavailabl e Source Comments [facility],non-owned Affiliates and Associated Physician Practices is amultiple site organization consisting of ambulatory clinics and hospital sitesin [place], [place], [place] and [place]. This disclosure is being madepursuant to the Care Everywhere program and may not contain all information available regarding this patient. Last updated 18.[facility] Social History Tobacco Use Types Packs/Day Years Used Date Smoking Tobacco: Never Assessed Sex and Gender Information Value Date Recorded Sex Assigned at Not on file Gender Identity Not on file Sexual Orientation Not on file Plan of Treatment Not on file
--- OUTSIDE RECORDS SUMMARY | 2024-09-11 15:19 | XMS_ITS | Encounter Summary ---
Author Organization [facility] Address [address] [place] [address] Phone Care Team Providers Care Tubular Products Fabricator Name Role Phone Tess Erwin APRN, CNP Primary Care P ramses Reason for Visit * Reason Comments Medication Refill Encounter Details Date Type Department Care Team (Late st Contact Info) Description 11/24/2023 Refill [facility] - Primary Care - Steven [address] [place] [phone] Tess Erwin APRN, CNP [address] [place], [place] [id number] Medication Refill Social History Tobacco Use Types Packs/Day Years Used Date Smoking Tobacco: Never Smokeless Tobacco: Never Alcohol Use Standard Drinks/Week Comments Yes 1 (1 standard drink = 0.6 oz pur e alcohol) Occasionally Comments No Sex and Gender Information Value Date Recorded Sex Assigned at Female 03/13/2024 9:19 AM CDT Legal Sex Female 9:46 PM CDT Gender Identity Female 03/13/2024 9:19 AM CDT Sexual Orientation Not on file documented as of this encounter Miscellaneous Notes * Telephone Encounter - Katlin Centeno RN - 11/24/2023 8:46 AM CDT Medication(s) refilled and signed per [facility] Chronic Medication Refill Standing Order for Pediatricand Adult Patients. Requested Prescriptions Pending Prescriptions Disp Refills Cholecalciferol (D3-50) 89435 UNIT Capsule [Pharmacy Med Name: VITAMIN D3-50 50,000 UNIT CAP] 12 Capsule 0 Sig: TAKE 1 CAPSULE (1.25 MG) BY MOUTH ONCE A WEEK. Vitamin Supplements (Adult) Protocol Passed - 11/24/2023 12:47 AM Passed - Visit with relevant provider in past 12 months or upcoming 90 days Recent Visits Date Type Provider Dept 11/12/23 Office Visit Tess Erwin APRN, CNP [facility] 09/21/23 Office Visit Tess Erwin APRN, CNP [facility] 06/15/23 Office Visit Peace Stewart PAC [facility] 03/01/23 Office Visit Tess Erwin APRN, CNP [facility] Showing recent visits within past 365 days and meeting all other requirements Future Appointments No visits were found meeting these conditions. Showing future appointments within next 90 days and meeting all other requirements Passed - Vitamin D dose not greater than 1.25mg documented in this encounter Plan of Treatment Upcoming Encounters Date Type Department Care Team (Late st Contact Info) Description 03/02/2025 8:00 AM CDT Office Visit [facility] - Primary Care - [place] [address] [place] [address] Tess Erwin APRN, CNP [address] [place] [address] documented as of this encounter Visit Diagnoses Diagnosis Vitamin D deficiency Unspecified vitamin D deficiency documented in this encounter Additional Health Concerns Assessment Noted Time PHQ-9 Depression Total Score: 0 12/08/19 17 9:00 AM CDT documented as of this encounter Care Teams Tubular Products Fabricator Relationship Specialty Start Date End Date Tess Erwin APRN, CNP [address] [place] [address] PCP - General Advanced Practice Nurse 01/23/20 documented as of this encounter
--- OUTSIDE RECORDS SUMMARY | 2024-09-11 15:19 | XMS_ITS | Encounter Summary ---
Author Organization [facility] Address [address] [place] [address] Phone Care Team Providers Care Back Office Medical Assistant Name Role Phone Tess Erwin APRN, CNP Primary Care P ramses Reason for Visit * Reason Comments Medication Refill Encounter Details Date Type Department Care Team (Late st Contact Info) Description 06/01/2021 Refill [facility] - Primary Care - Steven [address] [place] [phone] Tess Erwin APRN, CNP [address] [place] [address] Medication Refill Social History Tobacco Use Types [...] encounter Miscellaneous Notes * Telephone Encounter - Claudia Coats RN - 06/02/2021 11:43 AM CDT Per [place] PD[place] last fill date 04/17/21. documented in this encounter Plan of Treatment Upcoming Encounters Date Type Department Care Team (Late st Contact Info) Description 03/02/2025 8:00 AM CDT Office Visit [facility] - Primary Care - Steven [address] [place] [address] Tess Erwin APRN, SUSTAINABLE COMMUNITIES DESIGNER [address] [place] [address] documented as of this encounter Visit Diagnoses Diagnosis Arthritis Arthropathy, unspecified, site unspecified documented in this encounter Additional Health Concerns Assessment Noted Time PHQ-9 Depression Total Score: 0 12/08/19 17 9:00 AM CDT documented as of this encounter Care Teams Back Office Medical Assistant Relationship Specialty Start Date End Date Tess Erwin APRN, LYNN [address] [place] [address] PCP - General Advanced Practice Nurse 01/23/20 documented as of this encounter
--- OUTSIDE RECORDS SUMMARY | 2024-09-11 15:19 | XMS_ITS | Clinical Summary ---
Author Organization [facility] Address [address] [facility] [place] [address] Care Team Providers Care Contract Engineer Name Role Phone Unavailable Primary Care Provider Unavailabl e Source Comments [facility] [employer],non-owned Affiliates and Associated Physician Practices is amultiple site organization consisting of ambulatory clinics and hospital sitesin [place], [place], [place] and [place]. This disclosure is being madepursuant to the Care Everywhere program and may not contain all information available regarding this patient. Last updated 18.[facility] [employer] Social History Tobacco Use Types Packs/Day Years Used Date Smoking Tobacco: Never Assessed Sex and Gender Information Value Date Recorded Sex Assigned at Not on file Gender Identity Not on file Sexual Orientation Not on file Plan of Treatment Health Maintenance Due Date Last Done Comments BONE DENSITY TESTING 1950 COLOGUARD (AGES 45-75) - COL ON CA SCREENING 1949 COLON MONITORING 1949 COLONOSCOPY - COLON CA SCREENING 1949 CT COLONOGRAPHY - COLON CA SCREENING 1950 Colorectal Cancer Screening 1950 FIT - COLON CA SCREENING 1949 FLEX SIG - COLON CA SCREENING 1949 LIPID TESTING 1950 MAMMOGRAM 1950 MEDICARE AWV 12 MONTHS 1949 HEPATITIS C SCREENING 08/15/1967 DTAP/TDAP/TD VACCINES (1 - Tdap) 1968 PNEUMOCOCCAL VACCINE 50+ (1 of 1 - PCV) 1999 ZOSTER VACCINE (1 of 2) 1999 COVID-19 VACCINE ( - 2023-2 5 season) 2024 INFLUENZA VACCINE (#1) 2024 DEPRESSION SCREENING 08/02/2024 Respiratory Syncytial Virus (RSV) Vaccine Pt: or over 60 yrs (1 - 1-dose 75+ series) 2024 HEPATITIS B VACCINE Aged Out No longe r eligible based on patient's age to complete this topic HIB VACCINE Aged Out No longer eligi ble based on patient's age to complete this topic HPV VACCINE Aged Out No longer eligi ble based on patient's age to complete this topic MENINGOCOCCAL (Group B) VACCINE Aged Out No longer eligible based on patient's age to complete this topic MENINGOCOCCAL VACCINE Aged Out No lindsay ruthy eligible based on patient's age to complete this topic
--- OUTSIDE RECORDS SUMMARY | 2024-09-11 15:19 | XMS_ITS | Clinical Summary ---
Author Organization [id number] [place] Address [address] [place] [phone] Care Team Providers Care Multimedia Technician Name Role Phone Tess Erwin NP Primary Care Provide r Allergies No known active allergies Medications ibandronate (BONIVA) 150 mg tablet TAKE 1 TABLET BY MOUTH EVERY 30 DAYS. 08/06/19 Active multivitamin tabletIndications: Vitamin Deficiency Prevention Take 1 tablet by mouth daily Active HYDROcodone-acetam inophen (NORCO) 5-325 mg per tabletIndications: Pain Take 1 tablet by mouth every 6 (six) hours as needed for pain 12 tablet 08/05/19 Active Additional Information Patient not taking.Reported on 09/22/2023 ondansetron ODT (ZOFRAN-ODT) 8 mg disintegrating tabletIndications: Prevention of Post-Operative Nausea and Vomiting Take 1 tablet (8 mg total) by mouth every 8 (eight) hours as needed for nausea or vomiting 12 tablet 1 08/05/19 24 Active Additional Information Patient not taking.Reported on 09/22/2023 cholecalciferol (VITAMIN D-3) 50,000 unit capsule TAKE 1 CAPSULE (1.25 MG) BY MOUTH ONCE A WEEK. 08/24/19 24 Active Active Problems Problem Noted Date Diagnosed Date Left carpal tunnel syndrome 06/28/2023 Bilateral carpal tunnel syndrome 08/24/2022 Cubital tunnel syndrome, right 08/24/2022 Pronator syndrome, right 08/24/2022 Osteoarthritis of left knee 12/09/2021 Adjustment disorder with anxiety 10/26/2019 Vitamin D deficiency 09/28/2019 Obesity 05/08/2019 Migraine 05/08/2019 Arthritis 05/08/2019 B12 deficiency 06/03/2018 Immunizations Name Administration Dates Next Due Tetanus Toxoid, Unspecified 08/02/2006 Surgical History Surgery Date Site/Laterality Comments KNEE ARTHROSCOPY Right CARPAL TUNNEL RELEASE Right Medical History Medical History Date Comments Motion sickness Family History Medical History Relation Name Comments Heart disease Father Heart disease Mother Heart disease Other Hypertension Other Stroke Other Relation Name Status Comments Father Mother Other Social History Tobacco Use Types Packs/Day Years Used Date Smoking Tobacco: Never Smokeless Tobacco: Never Tobacco Cessation:Counseling Given: Not Answered AUDIT-C Answer Date Recorded Q1: How often do you have a drink containing alc ohol? 2-4 times a month 08/05/2023 Q2: How many drinks containi ng alcohol do you have on a typical day when you are drinking? 1 or 2 08/05/2023 Q3: How often do you have si x or more drinks on one occasion? Never 08/05/2023 Personal Safety Answer Date Recorded Have you ever been in or are you currently in a harmful physical or emotional relationship or is someone making you feel afraid or unsafe? Denies 08/05/2023 Comments No Sex and Gender Information Value Date Recorded Sex Assigned at Not on file Legal Sex Female 2:38 PM SOLUTION COORDINATOR Gender Identity Not on file Sexual Orientation Not on file Obstetrics History Last Filed Vital Signs Vital Sign Reading Time Taken Comments Blood Pressure 138/73 08/05/2023 10:55 AM SOLUTION COORDINATOR Pulse 58 08/05/2023 10:55 AM SOLUTION COORDINATOR Temperature 36.2 C (97.2 F) 08/05/2023 10:55 AM SOLUTION COORDINATOR Respiratory Rate 20 08/05/2023 10:5 5 AM SOLUTION COORDINATOR Oxygen Saturation 98% 08/05/2023 10: 55 AM SOLUTION COORDINATOR Inhaled Oxygen Concentration - - Weight 67.9 kg (149 lb 11.1 oz) 08/05/2023 8:06 AM SOLUTION COORDINATOR Height 157.5 cm (5' 2 ) 08/05/2023 8:06 AM SOLUTION COORDINATOR Body Mass Index 27.38 08/05/2023 8:06 AM SOLUTION COORDINATOR Plan of Treatment Health Maintenance Due Date Last Done Comments Colon Cancer Screening-Colonoscopy 1950 Depression Screening 1950 Fall Risk Assessment 1950 Hepatitis C Screening 1950 DTaP/Tdap/Td Vaccine (1 - Tdap) 1960 Hepatitis B Screening 1967 Zoster Vaccine (1 of 2) 1999 Pneumococcal vaccine 65+ (1 of 1 - PCV) 2014 Well Visit 65+ 2014 Covid-19 Vaccine (3 - 2023-2 5 season) 2024 07/04/2021, 10/08/2020 Influenza Vaccine (#1) 2024 Osteoporosis Screening-Bone Density Scan 06/04/2025 06/04/2023, 06/04/2023, 05/03/2020 Breast Cancer Screening-Mammogram Discontinued 05/03/2020, 05/03/2020, 01/03/2016 Insurance MEDICARE [employer] OOS MEDICARE BLUE ACCESS OOS BLUE ACCESS OOS MEDICARE [place] [address] WORKERS COMPENSATION GENERIC WORKERS COMPENSATION GENERIC Care Teams Multimedia Technician Relationship Specialty Start Date End Date Tess Erwin NP [address] [place] [address] PCP - General Emergency Medicine 11/22/23
--- OUTSIDE RECORDS SUMMARY | 2024-09-11 15:19 | XMS_ITS | Referral Summary ---
Author Organization [facility] [id number] [place] Address [address] [place] [phone] Care Team Providers Care Inspector Machine Parts Name Role Phone Tess Erwin NP Primary [...] Dates Next Due Tetanus Toxoid, Unspecified 08/02/2006 Social History Tobacco Use Types Packs/Day Years [...] on file Legal Sex Female 2:38 PM DATA PROCESSING SYSTEMS PROJECT PLANNER Gender Identity Not on file Sexual Orientation Not on file Last Filed Vital Signs Vital Sign Reading Time Taken Comments Blood Pressure 138/73 08/05/2023 10:55 AM DATA PROCESSING SYSTEMS PROJECT PLANNER Pulse 58 08/05/2023 10:55 AM DATA PROCESSING SYSTEMS PROJECT PLANNER Temperature 36.2 C (97.2 F) 08/05/2023 10:55 AM DATA PROCESSING SYSTEMS PROJECT PLANNER Respiratory Rate 20 08/05/2023 10:5 5 AM DATA PROCESSING SYSTEMS PROJECT PLANNER Oxygen Saturation 98% 08/05/2023 10: 55 AM DATA PROCESSING SYSTEMS PROJECT PLANNER Inhaled Oxygen Concentration - - Weight 67.9 kg (149 lb 11.1 oz) 08/05/2023 8:06 AM DATA PROCESSING SYSTEMS PROJECT PLANNER Height 157.5 cm (5' 2 ) 08/05/2023 8:06 AM DATA PROCESSING SYSTEMS PROJECT PLANNER Body Mass Index 27.38 08/05/2023 8:06 AM DATA PROCESSING SYSTEMS PROJECT PLANNER Plan of Treatment Not on file Insurance MEDICARE BLUE ACCESS OOS MEDICARE BLUE ACCESS OOS [email or web address] OOS MEDICARE WORKERS COMPENSATION GENERIC [phone] [place] [address] WORKERS COMPENSATION GENERIC WORKERS COMPENSATION GENERIC Care Teams Inspector Machine Parts Relationship Specialty Start Date End Date Tess Erwin NP [address] [place] [address] PCP - General Emergency Medicine 11/22/23
== END 2024-09-11 15:10 | disposition home or self-care (01) ==
PROVIDERS: Visit Provider Orthopaedic Surgery
DX: Z96.651 Presence of right artificial knee joint (principal)
CPT/HCPCS: 73562

== ENCOUNTER 2025-03-02 11:31 | Outpatient (CLI) | payer BC, MEDICARE, SELFPAY ==
--- NOTE | ~2025-03-02 | XR_ITS ---
XR knee RT 3V 03/02/2025 12:02 Indication: Right knee arthroplasty Procedure: 3 views right knee Comparison: 09/11/2024 Findings: Small joint effusion. There is a right total knee arthroplasty which is well seated. No und erlying fracture or evidence of loosening. Osteopenia. Impression: 1: No acute fracture. Small effusion. Reviewed, dictated and finalized at location A. Impression: 1: No acute fracture. Small effusion.
--- OUTSIDE RECORDS SUMMARY | 2025-03-02 11:37 | XMS_ITS | Referral Summary ---
Author Organization [facility] [id number] [place] Address [address] [place] [phone] Care Team Providers Care Dental Technician Apprentice Name Role Phone Tess Erwin NP Primary Care Provide r Encounters Date Type Department Care Team Description 12/08/2024 2:45 PM CDT Office Visit [facility] Surgery [address] [facility] [address] Medical [address] [place] [address] Tiffanie Del Rosario MD Cubital tunnel syndrome, right (Primary Dx); Bilateral carpal tunnel syndrome; Guyon syndrome, right from Last 3 Months Allergies No known active allergies Medications ibandronate (BONIVA) 150 mg tablet TAKE 1 TABLET BY MOUTH EVERY 30 DAYS. 08/06/19 Active multivitamin tabletIndications: Vitamin Deficiency Prevention Take 1 tablet by mouth daily Active HYDROcodone-acetam inophen (NORCO) 5-325 mg per tabletIndications: Pain Take 1 tablet by mouth every 6 (six) hours as needed for pain 12 tablet 08/05/19 24 Active Additional Information Patient not taking.Reported on 12/08/2024 ondansetron ODT (ZOFRAN-ODT) 8 mg disintegrating tabletIndications: Prevention of Post-Operative Nausea and Vomiting Take 1 tablet (8 mg total) by mouth every 8 (eight) hours as needed for nausea or vomiting 12 tablet 1 08/05/19 24 Active Additional Information Patient not taking.Reported on 12/08/2024 cholecalciferol (VITAMIN D-3) 50,000 unit capsule TAKE [...] 05/08/2019 Arthritis 05/08/2019 B12 deficiency 06/03/2018 Immunizations Immunization Administration Dates Next Due Tetanus Toxoid, Unspecified [...] on file Legal 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 Gender Identity Not on file Sexual Orientation Not on file Last Filed Vital Signs Vital Sign Reading Time Taken Comments Blood Pressure 138/73 08/05/2023 10:55 AM FLYING TEACHER Pulse 58 08/05/2023 10:55 AM FLYING TEACHER Temperature 36.2 C (97.2 F) 08/05/2023 10:55 AM FLYING TEACHER Respiratory Rate 20 08/05/2023 10:5 5 AM FLYING TEACHER Oxygen Saturation 98% 08/05/2023 10: 55 AM FLYING TEACHER Inhaled Oxygen Concentration - - Weight 67.9 kg (149 lb 11.1 oz) 08/05/2023 8:06 AM FLYING TEACHER Height 157.5 cm (5' 2) 08/05/2023 8:06 AM FLYING TEACHER Body Mass Index 27.38 08/05/2023 8:06 AM FLYING TEACHER Plan of Treatment Not on file Insurance MEDICARE [employer] ACCESS OOS MEDICARE BLUE ACCESS OOS ANTHEM ACCESS CHOICE BLUE ACCESS OOS MEDICARE WORKERS COMPENSATION GENERIC WORKERS COMPENSATION GENERIC * Guarantor: [employer] Account Type Relation to Patient Date of Phone Billing Address [employer] Employer [employer] [phone] WORKERS COMPENSATION GENERIC * Guarantor: [employer] Account Type Relation to Patient Date of Phone Billing Address [employer] Employer [address] [place] [address] Care Teams Dental Technician Apprentice Relationship Specialty Start Date End Date Tess Erwin NP [address] [place] [address] PCP - General Emergency Medicine 11/22/23
--- OUTSIDE RECORDS SUMMARY | 2025-03-02 11:37 | XMS_ITS | Encounter Summary ---
Author Organization [facility] Address [address] [place] [address] Care Team Providers Care Supervisor Motorcycle Repair Shop Name Role Phone Unavailable Primary Care Provider Unavailabl e Encounter Details Date Type Department Care Team (Late st Contact Info) Description 01/11/2020 Lab Requisition [facility] MICROBIOLOGY [address] [place] [address] [address] Rangel [address] [address] Social History Tobacco Use Types Packs/Day Years Used Date Smoking Tobacco: Never Assessed Comments Unknown Sex and Gender Information Value Date Recorded Sex Assigned at Not on file Legal Sex Female 6:02 PM FIRST 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 MICROBIOLOGY Microbiology SPECIMEN FROM NASOPHARYNGEAL STRUCTURE / Unknown Collection / Unknown 01/10/2020 10:00 AM CDT 01/11/2020 10:[address] [facility] MICROBIOLOGY - 01/11/2020 6:50 PM CDT This Real Time RT-PCR assay was developed and its performance characteristics determined by [facility]. This test has been authorized [...] revoked sooner. Sandra [facility] - MICROBIOLOGY ORDERABLES Final Result [facility] MICROBIOLOGY [address] [place] [address], [facility] [phone] documented in this encounter Visit Diagnoses Not on filedocumented in this encounter Additional Health Concerns Infection Onset Date Last Indicated Resolved Time COVID-19 Under Investigation 01/11/2020 01/10/2020 01/11/2020 6:50 PM CDT documented as of this encounter
--- OUTSIDE RECORDS SUMMARY | 2025-03-02 11:37 | XMS_ITS | Clinical Summary ---
Author Organization [facility] Address [address] [facility] [address] Care Team Providers Care Macaroni Maker Name Role Phone Unavailable Primary Care Provider Unavailabl e Source Comments [facility] [employer],non-owned Affiliates and Associated Physician Practices is amultiple site organization consisting of ambulatory clinics and hospital sitesin [place], [place], [place] and [place]. This disclosure is being madepursuant to the Care Everywhere program and may not contain all information available regarding this patient. 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 Gender Identity Not on file Sexual Orientation [...] SCREENING 1950 LIPID TESTING 1950 MAMMOGRAM 1950 HEPATITIS C SCREENING 08/15/1967 DTAP/TDAP/TD VACCINES (1 - Tdap) 1968 PNEUMOCOCCAL VACCINE 50+ (1 of 1 - PCV) 1999 ZOSTER VACCINE (1 of 2) 1999 COVID-19 VACCINE ( - 2023-2 5 season) 2024 DEPRESSION SCREENING 08/02/2024 Respiratory Syncytial Virus (RSV) Vaccine Pt: or over 60 yrs (1 - 1-dose 75+ series) 2024 INFLUENZA VACCINE (#1) 2025 HEPATITIS B VACCINE Aged Out No longe r eligible based on patient's age to complete this topic HIB VACCINE Aged Out No longer eligi ble based on patient's age to complete this topic HPV VACCINE Aged Out No longer eligi ble based on patient's age to complete this topic MENINGOCOCCAL (Group B) VACC INE SHARED DECISION-MAKING Aged Out No longer eligibl e based on patient's age to complete this topic MENINGOCOCCAL GROUPS A/C/Y/W VACCINE Aged Out No longer eligible b ased on patient's age to complete this topic Insurance [facility] Address: [address] [place] [address] [facility] [facility]
--- OUTSIDE RECORDS SUMMARY | 2025-03-02 11:37 | XMS_ITS | Encounter Summary ---
Author Organization [facility] Address [address] [facility] [place] [address] Phone Care Team Providers Care Cookee Name Role Phone Tess Erwin APRN, CNP Primary Care P ramses Reason for Visit * Reason Comments Medication Refill Encounter Details Date Type Department Care Team (Late st Contact Info) Description 07/04/2020 Refill [facility] - Primary Care - Steven [address] [place] [phone] Tess Erwin APRN, CNP [address] [place] [address] Medication Refill Social History Tobacco Use Types [...] Notes * Telephone Encounter - Kim Gaitan, CIGARETTE MACHINE FILLER - 07/04/2020 9:37 AM CST Medication failed [...] 3 months ago Adjustment disorder with anxiety [facility] Tess Erwin APN, CNP 5 months ago Adjustment disorder with anxiety [facility] Tess Erwin APN RISK INTERN 5 months ago Viral illness [facility] Tess Erwin APN, CNP 7 months ago Adjustment disorder with anxiety [facility] Janee Cheung Adelina, СЕРГЕЙ 8 months ago Adjustment disorder with anxiety [facility] Janee Cheung Adelina, [facility] Upcoming Appointments Future Appointments In 2 months [facility] In 2 months Tess Erwin APN, CNP [facility] DIRECTOR MEDICAL SAFETY - Recent and Past Visits Recent Visits Date Type Provider Dept 03/08/20 Office Visit Tess Erwin APN, CNP [facility] 01/23/20 Office Visit Tess Erwin APN, CNP [facility] 01/12/20 Telemedicine Tess Erwin APN, CNP [facility] 11/30/19 Telemedicine Janee Cheung Adelina, СЕРГЕЙ [facility] Showing recent visits within past 460 days with a meds authorizing provider and meeting all other requirements Future Appointments Date Type Provider Dept 09/13/20 Appointment [facility]win APN, CNP [facility] Showing future appointments within next 90 days with a meds authorizing provider and meeting all other requirements D PRINTER documented in this encounter Plan of Treatment Upcoming Encounters Date Type Department Care Team (Late st Contact Info) Description 03/29/2025 3:30 PM CDT [facility] - Steven [address] [place] [address] Tess Erwin APRN, LYNN [address] [place] [address] documented as of this encounter Visit Diagnoses Diagnosis Arthritis Arthropathy, unspecified, site unspecified documented in this encounter Additional Health Concerns Assessment Noted Time PHQ-9 Depression Total Score: 0 12/08/19 17 9:00 AM CDT documented as of this encounter Care Teams [place] Relationship Specialty Start Date End Date Tess Erwin APRN, LYNN [address] [place] [address] PCP - General Advanced Practice Nurse 01/23/20 documented as of this encounter
--- OUTSIDE RECORDS SUMMARY | 2025-03-02 11:37 | XMS_ITS | Encounter Summary ---
Author Organization [facility] Address [address] [place] [address] Phone Care Team Providers Care Marketing Ambassador Name Role Phone Tess Erwin APRN, CNP Primary Care P ramses Reason for Visit * Reason Comments Medication Refill Encounter Details Date Type Department Care Team (Late st Contact Info) Description 06/01/2021 Refill [facility] - Primary Care - Steven [address] [place] [phone] Tess Erwin APRN, CNP [address] [place] [address] Medication Refill Social History Tobacco Use Types [...] RN - 06/02/2021 11:43 AM CDT Per [place] last fill date 04/17/21. documented in this encounter Plan of Treatment Upcoming Encounters Date Type Department Care Team (Late st Contact Info) Description 03/29/2025 3:30 PM CDT Office Visit [facility] - Primary Care - [place] [address] [place] [address] Tess Erwin APRN, INSPECTOR TESTER SORTER [address] [place] [address] documented as of this encounter Visit Diagnoses Diagnosis Arthritis Arthropathy, unspecified, site unspecified documented in this encounter Additional Health Concerns Assessment Noted Time PHQ-9 Depression Total Score: 0 12/08/19 17 9:00 AM CDT documented as of this encounter Care Teams Marketing Ambassador Relationship Specialty Start Date End Date Tess Erwin APRN, LYNN [address] [place] [address] PCP - General Advanced Practice Nurse 01/23/20 documented as of this encounter
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
--- OUTSIDE RECORDS SUMMARY | 2025-03-02 11:37 | XMS_ITS | Encounter Summary ---
Author Organization [facility] Address [address] [place] [address] Phone Care Team Providers Care Power Washer Name Role Phone Tess Erwin APRN, CNP Primary Care P ramses Encounter Details Date Type Department Care Team (Late st Contact Info) Description 02/28/2025 Results Follow-Up [facility] - Primary Care - [place] [address] [place] [address] Tess Erwin APRN, CNP [address] [place] [address] XR KNEE 1 OR 2 VIEWS LEFT Social History Tobacco Use Types Packs/Day Years Used Date Smoking Tobacco: Never Smokeless Tobacco: Never Alcohol Use Standard Drinks/Week Comments Yes 1 (1 standard drink = 0.6 oz pur e alcohol) Occasionally [facility] Utilities Answer Date Recorded In the past 12 months has [employer], gas, oil, or water company threatened to shut off services in your home? No 03/13/2024 Social Connection and Isolation Panel Answer Date Recorded In a typical week, how many times do you talk on the phone with family, friends, or neighbors? More than three times a week 03/13/2024 How often do you get togethe r with friends or relatives? Twice a week 03/13/2024 How often do you attend [facility] or quaker services? 1 to 4 times per year [...] Total Score - Questions 1-9 1 08/04 [facility] - Occupational [...] were you homeless or living in a snf (including now)? No 03/13/2024 Comments No Sex and Gender Information Value Date Recorded Sex Assigned at Female 03/13/2024 9:19 AM CDT Legal Sex Female 9:46 PM CDT Gender Identity Female 03/13/2024 9:19 AM CDT Sexual Orientation Not on file documented as of this encounter Plan of Treatment Upcoming Encounters Date Type Department Care Team (Late st Contact Info) Description 03/29/2025 3:30 PM CDT Office Visit [facility] - Primary Care - [place] [address] [place] [address] Tess Erwin APRN, ENGINE INSTALLER [address] [place] [address] documented as of this encounter Visit Diagnoses Not on filedocumented in this encounter Additional Health Concerns Assessment Noted Time PHQ-9 Depression Total Score: 1 09/01/19 25 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
--- OUTSIDE RECORDS SUMMARY | 2025-03-02 11:37 | XMS_ITS | Encounter Summary ---
Author Organization [facility] Address [address] [place] [address] Phone Care Team Providers Care Profiling Machine Setup Operator Name Role Phone Tess Erwin APRN, CNP Primary Care P ramses Encounter Details Date Type Department Care Team (Late st Contact Info) Description 03/01/2025 Documentation Only [facility] - Primary Care - [place] [address] [place] [address] Tess Erwin APRN, CNP [address] [place] [address] Social History Tobacco Use Types Packs/Day Years Used Date Smoking Tobacco: Never Smokeless Tobacco: Never Alcohol Use Standard Drinks/Week Comments Yes 1 (1 standard drink = 0.6 oz pur e alcohol) Occasionally [employer] Utilities Answer Date Recorded In the past 12 months has [employer], gas, oil, or water [employer] threatened to shut off services in [...] week 03/13/2024 How often do you attend [facility] or [facility] services? 1 to 4 times per year [...] Total Score - Questions 1-9 1 08/04 [facility] - Occupational Stress [...] any time in the past 12 m [facility], were you homeless or living in a correction (including now)? No 03/13/2024 Comments No Sex and Gender Information Value Date Recorded Sex Assigned at Female 03/13/2024 9:19 AM CDT Legal Sex Female 9:46 PM CDT Gender Identity Female 03/13/2024 9:19 AM CDT Sexual Orientation Not on file documented as of this encounter Progress Notes * Eddie Flores CMA - 03/01/2025 3:30 PM CDT Mariana picked up x-ray disc and x-ray order that was left at the front office specialist. 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
--- OUTSIDE RECORDS SUMMARY | 2025-03-02 11:37 | XMS_ITS | Clinical Summary ---
Author Organization [place] [id number] Address [address] [place] [address] Care Team Providers Care Rn Plastic Surgery Name Role Phone Tess Erwin NP Primary [...] Migraine 05/08/2019 Arthritis 05/08/2019 B12 deficiency 06/03/2018 Encounters Date Type Department Care Team Description 12/08/2024 2:45 PM CDT Office Visit [facility] Surgery [address] [facility] [address] Office [address] [place] [address] Tiffanie Del Rosario MD Cubital tunnel syndrome, right (Primary Dx); Bilateral carpal tunnel syndrome; Guyon syndrome, right from Last 3 Months Immunizations Immunization Administration Dates Next Due Tetanus [...] on file Legal Sex Female 2:38 PM CHRISTMAS BELL RINGER Gender Identity Not on file Sexual Orientation Not on file Obstetrics History Last Filed Vital Signs Vital Sign Reading Time Taken Comments Blood Pressure 138/73 08/05/2023 10:55 AM CHRISTMAS BELL RINGER Pulse 58 08/05/2023 10:55 AM CHRISTMAS BELL RINGER Temperature 36.2 C (97.2 F) 08/05/2023 10:55 AM CHRISTMAS BELL RINGER Respiratory Rate 20 08/05/2023 10:5 5 AM CHRISTMAS BELL RINGER Oxygen Saturation 98% 08/05/2023 10: 55 AM CHRISTMAS BELL RINGER Inhaled Oxygen Concentration - - Weight 67.9 kg (149 lb 11.1 oz) 08/05/2023 8:06 AM CHRISTMAS BELL RINGER Height 157.5 cm (5' 2) 08/05/2023 8:06 AM CHRISTMAS BELL RINGER Body Mass Index 27.38 08/05/2023 8:06 AM CHRISTMAS BELL RINGER Plan of Treatment Health Maintenance Due Date Last Done Comments Colon Cancer Screening-Colonoscopy 1949 Depression Screening 1949 Fall Risk Assessment 1949 Hepatitis C Screening 1949 DTaP/Tdap/Td Vaccine (1 - Tdap) 1960 Hepatitis B Screening 1967 Pneumococcal vaccine 65+ (1 of 1 - PCV) 1999 Zoster Vaccine (1 of 2) 1999 Well Visit 65+ 2014 Covid-19 Vaccine (3 2023-2 5 season) 2024 07/04/2021, 10/08/2020 Influenza Vaccine (#1) 2025 Osteoporosis Screening-Bone Density Scan 06/04/2025 06/04/2023, 06/04/2023, 05/03/2020 Breast Cancer Screening-Mammogram Discontinued 020, 05/03/2020 Insurance MEDICARE [place] [employer] [facility] Address: [address] [place] [address] MEDICARE BLUE ACCESS OOS Member Subscriber Plan / Payer (Ef fective 2015-Present) Name:Mariana Aragon Relation to Subscriber:Self Name:MargoMariana astudillo Payer ID:[id number] (NAIC) Type:[employer] Address: [facility] [address] ACCESS CHOICE [facility] Address: [address] [place] [address] BLUE ACCESS OOS [facility] Address: [address] [place] [address] MEDICARE WORKERS COMPENSATION GENERIC [phone] [place] [address] WORKERS COMPENSATION GENERIC WORKERS COMPENSATION GENERIC Care Teams Rn Plastic Surgery Relationship Specialty Start Date End Date Tess Erwin NP [address] [place] [address] PCP - General Emergency Medicine 11/22/23
--- OUTSIDE RECORDS SUMMARY | 2025-03-02 11:37 | XMS_ITS | Encounter Summary ---
Author Organization [facility] Address [address] [place] [address] Phone Care Team Providers Care Med Admin Name Role Phone Tess Erwin APRN, CNP Primary Care P ramses Reason for Visit * Reason Comments Medication Refill Encounter Details Date Type Department Care Team (Late st Contact Info) Description 11/24/2023 Refill [facility] - Primary Care - [place] [address] [place] [phone] Tess Erwin APRN, CNP [address] [place], [place] [id number] Medication Refill Social History Tobacco Use Types [...] Prescriptions Pending Prescriptions Disp Refills Cholecalciferol (D3-50) 69328 UNIT Capsule [Pharmacy Med Name: VITAMIN D3-50 50,000 UNIT CAP] 12 Capsule 0 Sig: TAKE 1 CAPSULE (1.25 MG) BY MOUTH ONCE A WEEK. Vitamin Supplements (Adult) Protocol Passed - 11/24/2023 12:47 AM Passed - Visit with relevant provider in past 12 months or upcoming 90 days Recent Visits Date Type Provider Dept 11/12/23 Office Visit Tess Erwin APRN, CNP [facility] 09/21/23 Office Visit Tess Erwin APRN, CNP [facility] 06/15/23 Office Visit Peace Stewart PAC [facility] 03/01/23 Office Visit Tess Erwin APRN, CNP [facility] Showing recent visits within past 365 days [...] Description 03/29/2025 3:30 PM CDT Office Visit [facility] - Primary Care - [place] [address] [place] [address] Tess Erwin APRN, CNP [address] [place] [address] documented as of this encounter Visit Diagnoses Diagnosis Vitamin D deficiency Unspecified vitamin D deficiency documented in this encounter Additional Health Concerns Assessment Noted Time PHQ-9 Depression Total Score: 0 12/08/19 17 9:00 AM CDT documented as of this encounter Care Teams Med Admin Relationship Specialty Start Date End Date Tess Erwin APRN, CNP [address] [place] [address] PCP - General Advanced Practice Nurse 01/23/20 documented as of this encounter
--- OUTSIDE RECORDS SUMMARY | 2025-03-02 11:37 | XMS_ITS | Encounter Summary ---
Author Organization [facility] Address [address] [place] [address] Phone Care Team Providers Care [employer]ist Name Role Phone Tess Erwin APRN, CNP Primary Care P ramses Encounter Details Date Type Department Care Team (Late st Contact Info) Description 03/01/2025 [facility]phone [facility] - Steven [address] [place] [address] Tess Erwin APRN, CNP [address] [place] [address] Social History Tobacco Use Types Packs/Day Years Used Date Smoking Tobacco: Never Smokeless Tobacco: Never Alcohol Use Standard Drinks/Week Comments Yes 1 (1 standard drink = 0.6 oz pur e alcohol) Occasionally [employer] Answer Date Recorded In the past 12 months has [employer], gas, oil, or water [employer] threatened to shut off services in your home? No 03/13/2024 Social Connection and Isolation Panel Answer Date Recorded In a typical week, how many times do you talk on the phone with family, friends, or neighbors? More than three times a week 03/13/2024 How often do you get togethe r with friends or relatives? Twice a week 03/13/2024 How often do you attend [facility] or anglican services? 1 to 4 times per year [...] Total Score - Questions 1-9 1 08/04 [employer] [facility] [employer] [facility] - Occupational Stress [...] any time in the past 12 m [facility], were you homeless or living in a fpc (including now)? No 03/13/2024 Comments No Sex and Gender Information Value Date Recorded Sex Assigned at Female 03/13/2024 9:19 AM CDT Legal Sex Female 9:46 PM CDT Gender Identity Female 03/13/2024 9:19 AM CDT Sexual Orientation Not on file documented as of this encounter Miscellaneous Notes * Telephone Encounter - Maria Luisa Green RN - 03/01/2025 9:56 AM CDT Received outside order for x-ray of right knee. Spoke to patient to inform her we can't do outside orders for x-rays. She would like to quill picking machine operator thepaper order, along with her x-ray of the left knee on disc from 02/27/25. X-ray will prepare this for patient and both will be placed at service desk manager for her to quill picking machine operator today. Patient also asked that we fax the left x-ray report to Dr. Vazquez's office. Faxed successfullywith confirmation received. documented in this encounter Plan of Treatment Upcoming Encounters Date Type Department Care Team (Late st Contact Info) Description 03/29/2025 3:30 PM CDT 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
== END 2025-03-02 11:32 | disposition home or self-care (01) ==
PROVIDERS: Visit Provider Orthopaedic Surgery
DX: Z96.651 Presence of right artificial knee joint (principal); M25.461 Effusion, right knee
CPT/HCPCS: 73562